=== PATIENT | male | born 1955 | race Caucasian/White ===

== ENCOUNTER 2024-04-30 23:44 | Inpatient (IN) | payer MEDICARE, MEDICAID, SELFPAY ==
[2024-04-30 23:46] VITALS: BP 164/117; PULSE 66; RESP 32; TEMP 36.3; O2SAT 91; BMI 24.5
[2024-04-30 23:50] VITALS: BP 166/117; PULSE 66; RESP 32; TEMP 36.3; O2SAT 91
--- NOTE | 2024-04-30 23:50 | EKG12_ITS ---
Test Reason : UNRESPONSIVE Blood Pressure : */* mmHG Vent. Rate : 99 BPM Atrial Rate : 69 BPM P-R Int : 146 ms QRS Dur : 84 ms QT Int : 410 ms P-R-T Axes : 29 -38 26 degrees QTcB Int : 526 ms Sinus rhythm with frequent Premature ventricular complexes Left axis deviation Minimal voltage criteria for LVH, may be normal variant ( R in aVL ) Anterolateral infarct , age undetermined Prolonged QT Abnormal ECG Confirmed by WILY MAURICIO, SALVATORE ([id number]), news editor SHILOH HUMPHRIES ([id number]) on 05/02/2024 7:10:30 AM Referred By: MADDIE Confirmed By: SALVATORE JULIEN MD
[2024-04-30 23:52] VITALS: O2SAT 94
[2024-04-30 23:55] VITALS: O2SAT 93
--- NOTE | 2024-04-30 23:59 | RAD_ITS ---
INDICATION: chest pain EXAMINATION/TECHNIQUE: X-RAY - XR Chest 1 View COMPARISON: No relevant prior comparison study available FINDINGS: LINES/DEVICES: There is tracheostomy tube in good position. LUNGS: No consolidation, edema or effusion. No pneumothorax. MEDIASTINUM AND CARDIOVASCULAR STRUCTURES: Cardiac silhouette not enlarged. Central airways and mediastinal contour are unremarkable. BONES AND SOFT TISSUES: Unremarkable. RAD/Chest 1 View (Portable) IMPRESSION: No radiographic evidence of acute cardiopulmonary disease. Electronically Signed: Zachariah Kitchen MD at 0:39 EST ,
[2024-05-01] VITALS (28 sets, daily range): BP systolic 104–169; BP diastolic 69–133; PULSE 73–160; RESP 18–36; TEMP 36.4–37.1; O2SAT 93–100; BMI 22.8
[2024-05-01 00:06] LABS: International Normalized Ratio 1.3; Prothrombin Time (Protime)PT. 15.7 SECONDS (11.7-14.9)
[2024-05-01 00:07] LABS: Absolute Lymphocyte Count 1.49 X10^3/uL (0.83-4.51); Absolute Neutrophil Count 15.6 X10^3/uL (2.0-7.7); Basophil# 0.11 X10^3/uL; Basophil% 0.6 % (0-1); Eosinophil# 0.08 X10^3/uL; Eosinophils% 0.4 % (0-5); Hemoglobin 10.2 g/dL (13.0-16.5); Lymphocyte # 1.49 X10^3/ul (0.83-4.51); Lymphocyte % 7.6 % (19-41); Mean Corp Hgb Conc 31.9 g/dL (32-36); Mean Corpuscular Hgb 27.3 pg (27.0-32.0); Mean Corpuscular Volume 85.8 fL (80-94); Mean Platelet Vol. 9.7 fl (6.2-12.0); Monocyte# 1.44 X10^3/uL; Monocyte% 7.3 % (0-10); NRBC Flagged by Analyzer 0.1 % (0-5); Neutrophil # 15.62 X10^3/uL (2.7-7.7); Neutrophil % 79.6 % (47-70); Partial Thromboplast Time 30.8 Seconds (24.1-36.2); Platelet Count 490 K/mm3 (150-450); RBC Distribution Width CV 16.2 % (11.6-14.6); RBC Distribution Width SD 50.4 fl (35.1-43.9); Red Blood Count 3.73 M/mm3 (4.6-6.2); White Blood Count 19.6 K/mm3 (4.4-11.0)
--- NOTE | 2024-05-01 00:10 | EKG12_ITS ---
Test Reason : REPEAT Blood Pressure : */* mmHG Vent. Rate : 108 BPM Atrial Rate : 108 BPM P-R Int : 144 ms QRS Dur : 84 ms QT Int : 376 ms P-R-T Axes : -23 -52 37 degrees QTcB Int : 503 ms Critical Test Result: STEMI Sinus tachycardia Left axis deviation Anterolateral infarct , possibly acute ACUTE [place] / STEMI Confirmed by WILY MAURICIO, SALVATORE ([id number]), advertising editor SHILOH HUMPHRIES ([id number]) on 05/02/2024 7:11:25 AM Referred By: Confirmed By: SALVATORE JULIEN MD
--- NOTE | 2024-05-01 00:17 | EDS_ITS ---
HPI History of Present Illness Chief Complaint: Unresponsive Informant: EMS Narrative Narrative: 68-year-old male does not typically come to this hospital but was brought to this hospital by EMS out of concern for a STEMI. Patient is a resident at [facility] in [place]. Apparently about an hour and a half prior to EMS arrival he became altered and his alert fullness and said oh God oh God. He was reported to be unresponsive for EMS he has been semiresponsive. They had concerns for STEMI on prehospital EKG. Patient has a history of myasthenia gravis. He has a tracheostomy and PEG tube. EMS states that they had short nonsustained runs of V-fib and route to the hospital but did not require treatment. [facility] Medical History (Updated 05/01/24 @ 01:[address] Buck Burnette, ) Gastrostomy in place Tracheostomy in place TIA (transient ischemic attack) Hypertension Myasthenia gravis with exacerbation Chronic respiratory failure Congestive cardiac failure Atrial flutter Bradycardia Iron deficiency anemia Chronic pain Diabetes 1.5, managed as type 2 Dysphagia GERD (gastroesophageal reflux disease) Hyperlipemia Afib Dyskinesia of esophagus Depression Anxiety Home Medications ?Medication ?Instructions ?Recorded ?Last Taken ?Type apixaban 5 mg tablet 5 mg feeding tube BID 04/30/24 Unknown History atorvastatin 40 mg tablet 40 mg feeding tube QHS 04/30/24 Unknown History azathioprine 50 mg tablet 50 mg feeding tube BID 04/30/24 Unknown History lactose-reduced food-fiber 0.07 250 ml feeding tube Q4H 04/30/24 Unknown History gram-1.5 kcal/mL liquid for tube feed (Isosource 1.5 Trever) dextromethorphan-guaifenesin 10 10 ml feeding tube Q6H 05/01/24 Unknown History mg-100 mg/5 mL oral syrup diclofenac sodium 1 % topical gel topical BID 05/01/24 Unknown History (Arthritis Pain (diclofenac)) docusate sodium 100 mg tablet 100 mg PO BID 05/01/24 Unknown History (Docuprene) duloxetine 60 mg capsule,delayed 60 mg feeding tube QHS 05/01/24 Unknown History release sprinkle (Drizalma Sprinkle) escitalopram oxalate 5 mg tablet 15 mg feeding tube DAILY 05/01/24 Unknown History ferrous sulfate 300 mg (60 mg 300 mg feeding tube BID 05/01/24 Unknown History iron)/5 mL oral liquid fluticasone propionate 50 2 spray intranasal BID 05/01/24 Unknown History mcg/actuation nasal spray,suspension (24 Hour Allergy Relief) furosemide 20 mg tablet 20 mg feeding tube DAILY 05/01/24 Unknown History insulin glargine 100 unit/mL (3 15 unit subcut BID 05/01/24 Unknown History mL) subcutaneous pen (Lantus Solostar U-100 Insulin) insulin lispro 100 unit/mL See Protocol subcut Q6H 05/01/24 Unknown History subcutaneous pen (Humalog KwikPen (U-100) Insulin) memantine 5 mg tablet 5 mg feeding tube BID 05/01/24 Unknown History pramipexole 0.25 mg tablet 0.25 mg feeding tube DAILY 05/01/24 Unknown History pramipexole 0.5 mg tablet 0.5 mg feeding tube QHS 05/01/24 Unknown History prednisone 20 mg tablet 20 mg feeding tube DAILY 05/01/24 Unknown History pregabalin 100 mg capsule (Lyrica) 100 mg feeding tube TID 05/01/24 Unknown History pyridostigmine bromide 60 mg tablet 60 mg feeding tube QHS 05/01/24 Unknown History pyridostigmine bromide 60 mg tablet 120 mg feeding tube ACHS 05/01/24 Unknown History sennosides 8.6 mg-docusate sodium 2 tab-cap PO DAILY 05/01/24 Unknown History 50 mg tablet (Stool Softener-Laxative) sotalol 80 mg tablet (Betapace) 40 mg feeding tube BID 05/01/24 Unknown History sulfamethoxazole 800 1 tab feeding tube MOWEFR 05/01/24 Unknown History mg-trimethoprim 160 mg tablet (Bactrim DS) Allergy/AdvReac Type Severity Reaction Status Date / Time amlodipine Allergy Unknown PT UNABLE Verified 04/30/24 23:56 TO RESPOND-NEEDS F/U amoxicillin Allergy Unknown PT UNABLE Verified 04/30/24 23:56 TO RESPOND-NEEDS F/U atorvastatin Allergy Unknown PT UNABLE Verified 04/30/24 23:56 TO RESPOND-NEEDS F/U cyclobenzaprine Allergy Unknown PT UNABLE Verified 04/30/24 23:56 TO RESPOND-NEEDS F/U diclofenac Allergy Unknown PT UNABLE Verified 04/30/24 23:56 TO RESPOND-NEEDS F/U diltiazem Allergy Unknown PT UNABLE Verified 04/30/24 23:56 TO RESPOND-NEEDS F/U esomeprazole Allergy Unknown PT UNABLE Verified 04/30/24 23:56 TO RESPOND-NEEDS F/U famotidine Allergy Unknown PT UNABLE Verified 04/30/24 23:56 TO RESPOND-NEEDS F/U gabapentin Allergy Unknown PT UNABLE Verified 04/30/24 23:56 TO RESPOND-NEEDS F/U haloperidol Allergy Unknown PT UNABLE Verified 04/30/24 23:56 TO RESPOND-NEEDS F/U immune globulin,alpha (IgA) Allergy Unknown PT UNABLE Verified 04/30/24 23:56 average 46 mcg/mL TO RESPOND-NEEDS F/U ketamine Allergy Unknown PT UNABLE Verified 04/30/24 23:56 TO RESPOND-NEEDS F/U ketorolac Allergy Unknown PT UNABLE Verified 04/30/24 23:56 TO RESPOND-NEEDS F/U lansoprazole Allergy Unknown PT UNABLE Verified 04/30/24 23:56 TO RESPOND-NEEDS F/U morphine Allergy Unknown PT UNABLE Verified 04/30/24 23:56 TO RESPOND-NEEDS F/U nifedipine Allergy Unknown PT UNABLE Verified 04/30/24 23:56 TO RESPOND-NEEDS F/U pantoprazole Allergy Unknown PT UNABLE Verified 04/30/24 23:56 TO RESPOND-NEEDS F/U prochlorperazine Allergy Unknown PT UNABLE Verified 04/30/24 23:56 TO RESPOND-NEEDS F/U promethazine Allergy Unknown PT UNABLE Verified 04/30/24 23:56 TO RESPOND-NEEDS F/U zolpidem Allergy Unknown PT UNABLE Verified 04/30/24 23:56 TO RESPOND-NEEDS F/U Family History unable to obtain Surgical History unable to obtain Social History Smoking Status: Unknown if ever smoked ROS ROS ED Review of Systems ROS Unobtainable: due to mental status EXAM Physical Exam Const Vital Signs: 04/30/24 23:46 04/30/24 23:50 04/30/24 23:52 Temperature 97.3 F L 97.3 F L Temperature Source Temporal Temporal Pulse Rate 66 66 Respiratory Rate 32 H 32 H Respiratory Effort Respiratory Pattern Blood Pressure 164/117 H 166/117 H Blood Pressure Mean 132 133 Pulse Ox 91 91 94 Oxygen Delivery Method Non-Rebreather Non-Rebreather Non-Rebreather Oxygen Flow Rate (L/min) 15 15 04/30/24 23:55 04/30/24 23:56 05/01/24 00:02 Temperature Temperature Source Pulse Rate 73 Respiratory Rate 20 H Respiratory Effort Normal Non-Labored Respiratory Pattern Normal Blood Pressure 169/102 H Blood Pressure Mean 124 Pulse Ox 93 93 Oxygen Delivery Method Room Air Room Air Oxygen Flow Rate (L/min) 05/01/24 01:07 05/01/24 01:28 05/01/24 01:50 Temperature 97.8 F 97.8 F Temperature Source Temporal Temporal Pulse Rate 73 80 88 Respiratory Rate 24 H 18 22 H Respiratory Effort Respiratory Pattern Blood Pressure 152/102 H 153/113 H 166/122 H Blood Pressure Mean 118 126 136 Pulse Ox 93 93 96 Oxygen Delivery Method Room Air Room Air Room Air Oxygen Flow Rate (L/min) 05/01/24 02:07 Temperature Temperature Source Pulse Rate 114 H Respiratory Rate 22 H Respiratory Effort Respiratory Pattern Blood Pressure 159/99 H Blood Pressure Mean 119 Pulse Ox 94 Oxygen Delivery Method Room Air Oxygen Flow Rate (L/min) Positive well nourished and well developed General Appearance ED: well developed, NAD and pallor HEENT Reports normocephalic, head/scalp atraumatic and moist mucous membranes HEENT Narrative: Tracheostomy present Eyes PERRL and EOMs intact bilaterally Neck no lymphadenopathy, supple and no JVD Resp normal respiratory effort and clear to auscultation bilaterally Cardio regular rate, regular rhythm and no murmurs GI normal to inspection, nondistended, normoactive bowel sounds and non-tender Palpation: soft Back/Spine no CVA tenderness and normal ROM Extremity normal to inspection General Extremety ED: Negative for edema General Extremity: Negative for edema Neuro Neuro Narrative: Generally weak appearing Sensorium / Orientation: alert Psych Psych Narrative: Unable to assess Skin no rashes or lesions noted and no wounds General Skin Exam: pallor MDM MDM MDM Narrative Medical decision making narrative: I sent the prehospital EKG to our STEMI physician Dr. Black. We did not call a prehospital STEMI as we did not have an EMS report. Initial EKG performed here at 2348 hrs. is concerning across the anterior lateral leads. I sent this for review as well. I was able to repeat it approximately 15 minutes later with a much better baseline. Labs returned with a white count of 19.6 hemoglobin of 10.2 INR 1.3 PTT 30.8. BUN of 40 creatinine 1.08 glucose of 187. Troponin is significantly elevated at 2354. Urinalysis 10-25 white cells 2+ bacteria. This will be sent for culture and blood cultures will be obtained. Lactic acid was also sent. I repeated his EKG at 0044 hrs. I also sent this to our STEMI physician for review and we spoke directly. His ABG shows a pH of 7.50 HCO3 29.4. We called [facility] where is reported he was just hospitalized after but apparently he was not just hospitalized there. We are able to obtain a cardiology consult from the of this month by Dr. Huffman. His description of the EKG is sinus with early transition. I was able to obtain a EKG from 2021 but does not show today's changes. It was noted that in February 2022 he had a heart catheterization that showed nonobstructive coronary artery disease with the worst lesion at 30% at the left main. Echocardiogram in February 23, 2024 showed an LVEF of 62% no valvular disease and mild LVH. My independent interpretation of the chest x-ray is no acute process. Patient will be given a dose of Rocephin. Cardiology is recommending a heparin drip at this time. We are going to try to obtain the EKG from [facility] which is where I believe the patient was most likely admitted recently. Plan will be admission. As far as the patient I cannot get him to really tell me anything. He will intermittently say help me but does not appear in any distress. He remains hypertensive and going to go ahead and give him some hydralazine. Blood pressure did improve. Patient was discussed with the hospitalist and we are preparing to move him up to the floor when he went into A-fib with RVR. It is unclear if the patient has had his sotalol tonight and the prison was not able to provide us this information at the time that we called. I ordered metoprolol. Again he has a history of A-fib. Patient also received a dose of Dilaudid for presumed pain even though he could not tell us he seemed uncomfortable tapping his foot and trying to move around in the bed. EKGs perfomed at 2348/0005/24914/0231 hours History & Record Review Discussion w/independent historian: EMS personnel Additional record(s) reviewed:: Prior outpatient record Lab Data Attestation: I reviewed the patient's lab results. Labs: Laboratory Results - last 24 hr 04/30/24 05/01/24 05/01/24 23:48 00:50 01:07 WBC 19.6 H RBC 3.73 L Hgb 10.2 L Hct 32.0 L MCV 85.8 MCH 27.3 MCHC 31.9 L RDW Std Deviation 50.4 H RDW Coeff of Mauro 16.2 H Plt Count 490 H MPV 9.7 Immature Gran % (Auto) 4.500 H Neut % (Auto) 79.6 H Lymph % (Auto) 7.6 L Long % (Auto) 7.3 Eos % (Auto) 0.4 Baso % (Auto) 0.6 Absolute Neuts (auto) 15.6 H Absolute Lymphs (auto) 1.49 Nucleated RBC % 0.1 PT 15.7 H INR 1.3 APTT 30.8 Sodium 138 Potassium 3.7 Chloride 99 Carbon Dioxide 31.0 Anion Gap 7 BUN 40 H Creatinine 1.08 Estim Creat Clear Calc 71.85 Est GFR (MDRD) Af Amer 87 Est GFR (MDRD) Non-Af 72 BUN/Creatinine Ratio 37.0 H Glucose 187 H Lactic Acid 2.5 H* Calcium 9.6 Total Bilirubin 0.40 Direct Bilirubin 0.13 AST 41 H ALT 68 H Alkaline Phosphatase 234 H Troponin I High Sens 2354 H* Total Protein 7.2 Albumin 2.9 L Globulin 4.3 H Lipase 94 H Urine Color Yellow Urine Clarity Clear Urine pH 8.0 Ur Specific [place] 1.015 Urine Protein 30 H Urine Glucose (UA) Normal Urine Ketones Negative Urine Occult Blood 25 H Urine Nitrite Negative Urine Bilirubin Negative Urine Urobilinogen Normal Ur Leukocyte Esterase 500 H Urine RBC 0 SEEN Urine WBC 10-25 SEEN Ur Squamous Epith Cells 0 SEEN Urine Bacteria 2+ Urine Mucus 0 SEEN ABG Data ABG results: ABG 05/01/24 00:22 Specimen Type ART Sample Site L Radial pH 7.51 H Bicarbonate Actual 29.4 H Total CO2 31 Base Excess 6 H O2 Saturation 96 O2 % 30.0 ABG pCO2 37.0 ABG pO2 76 [place] Test Positive O2 Delivery Device T Collar Vent Mode Not entered Radiography Diagnostic Testing: Clinical Impression(s) from Imaging Studies Chest X-Ray 04/30/24 23:59 IMPRESSION: No radiographic evidence of acute cardiopulmonary disease. Electronically Signed: Zachariah Kitchen MD at 0:39 EST , EKG Initial EKG: Attestation: I personally reviewed and interpreted this EKG as follows: Comments: Sinus tachycardia ventricular rate of 109 bpm. Very pronounced T waves hyperacute appearing particularly V2 through V6 (2348 hours) Follow-up EKG: Attestation: I personally reviewed and interpreted this EKG as follows: Comments: Sinus tachycardia ventricular rate of 109 bpm. Very pronounced T waves hyperacute appearing particularly V2 through V6 (0006 hours) Management Discussion w/another healthcare provider: Hospitalist (Dr Agosto) and Toolroom Checker (Dr Black) Critical Care Time Critical Care Time: Yes Critical care time (excluding procedures): 30-74 minutes (35 min), Including time spent:, Discussing w/Patient &/or Family/Radial Saw Operator, Discussing w/Consultants, Arranging Admission or Transfer and Performing Direct Patient Care at Bedside Discharge Plan Dx/Rx/DC Orders Clinical Impression: ACS (acute coronary syndrome), Elevated troponin, Acute UTI, Hypertension Disposition Disposition: Acute Care [facility]
[2024-05-01 00:24] LABS: AST(SGOT) 41 U/L (15-37); Alanine Aminotransfer ALT/SGPT 68 U/L (16-61); Albumin, Serum 2.9 g/dL (3.2-5.0); Alkaline Phosphatase 234 U/L (45-117); Anion Gap 7 (5-15); BUN 40 mg/dL (7-18); Bilirubin, Direct 0.13 mg/dL (0.00-0.30); Calcium,Total 9.6 mg/dL (8.5-10.1); Chloride 99 mmol/L (98-107); Creatinine, Serum 1.08 mg/dL (0.70-1.30); EST Glomerular Filtration Rate 72 mL/min (>60); Est Glom Filt Rate - Afr Amer 87 mL/min (>60); Estimated Creatinine Clearance 71.85 ml/min; Globulin 4.3 g/dL (2.2-4.2); Glucose 187 mg/dL (74-106); Lipase 94 U/L (13-75); Potassium 3.7 mmol/L (3.5-5.1); Protein, Total 7.2 g/dL (6.4-8.2); Sodium Level 138 mmol/L (136-145); Troponin-I HS 2354 pg/mL (3.0-78.0)
[2024-05-01 00:27] LABS: Allen Test Positive; Base Excess 6 mmol/L (-2 to +2); Bicarbonate 29.4 mmol/L (22-26); Blood Gas Specimen Type ART; Mode Not entered; O2 Delivery Device T Collar; PO2 76 mmHG (75-100); SITE L Radial; SO2 96 % (95-99); Total Carbon Dioxide 31 mmol/L; pH 7.51 (7.35-7.45)
[2024-05-01 01:12] LABS: Mucous, Urine 0 SEEN /hpf (<or=2+); Red Blood Cells-Urine 0 SEEN /hpf (0-5); Squamous Epithelial Cells - UA 0 SEEN /hpf (0-5)
[2024-05-01 01:13] LABS: Color, Urine Yellow (Yellow); Glucose, Dipstick Normal (Normal); Ketone-Dipstick Negative (Negative); Leukocyte Esterase-Dipstick 500 /ul (Negative); Nitrite-Dipstick Negative (Negative); Occult Blood-Urine 25 /ul (Negative); Protein-Dipstick 30 mg/dl (Negative); Specific Gravity, Urine 1.015 (1.002-1.030); Urine Bilirubin Dipstick Negative (Negative); Urine Clarity Clear (Clear); Urine Urobilinogen Normal (Normal)
[2024-05-01 01:22] LABS: Bacteria 2+ /hpf (None Seen); White Blood Cells 10-25 SEEN /hpf (0-5)
[2024-05-01] MEDS: HEPARIN/D5w 25,000 UNITS 25,000 UNITS/250 ML IV.SOLN. 12 UNITS CONT INF (01:46)
[2024-05-01 01:48] LABS: Lactic Acid 2.5 mmol/L (0.4-1.9)
[2024-05-01] MEDS: hydrALAZINE 20 MG/ML Vial IV (01:50)
[2024-05-01] MEDS: Ceftriaxone 1 GM/50 ML BAG IV ×2 (02:03→21:50)
[2024-05-01] MEDS: 0.9% Normal Saline (1000mL) 1,000 ML 999 ML IV (02:04)
--- NOTE | 2024-05-01 02:18 | PCM.HP.STD ---
HPI - General General Date of Admission: 05/01/24 HPI Narrative TIA RAM, is a 68 M who [facility] because of [facility] pain. He had an extensive admission at outside hospital and then was in a long-term care facility in [place]. He has a history of myasthenia gravis and is currently trached and pegged. He presents the hospital with chest pain and initially there was concerns for STEMI since he had an elevated troponin to 2300. The EKGs were shared with cardiology who did not feel that he was having a STEMI and recommended a heparin drip. Unfortunately he presented somewhat unresponsive and does not communicate directly so history was obtained from chart review and the ED physician. [facility] Medical History (Updated 05/01/24 @ 03:[address] Buck Burnette, ) Gastrostomy in place Tracheostomy in place TIA (transient ischemic attack) Hypertension Myasthenia gravis with exacerbation Chronic respiratory failure Congestive cardiac failure Atrial flutter Bradycardia Iron deficiency anemia Chronic pain Diabetes 1.5, managed as type 2 Dysphagia GERD (gastroesophageal reflux disease) Hyperlipemia Afib Dyskinesia of esophagus Depression Anxiety Home Medications ?Medication ?Instructions ?Recorded ?Last Taken ?Type apixaban 5 mg tablet 5 mg feeding tube BID 04/30/24 Unknown History atorvastatin 40 mg tablet 40 mg feeding tube QHS 04/30/24 Unknown History azathioprine 50 mg tablet 50 mg feeding tube BID 04/30/24 Unknown History lactose-reduced food-fiber 0.07 250 ml feeding tube Q4H 04/30/24 Unknown History gram-1.5 kcal/mL liquid for tube feed (Isosource 1.5 Trever) dextromethorphan-guaifenesin 10 10 ml feeding tube Q6H 05/01/24 Unknown History mg-100 mg/5 mL oral syrup diclofenac sodium 1 % topical gel topical BID 05/01/24 Unknown History (Arthritis Pain (diclofenac)) docusate sodium 100 mg tablet 100 mg PO BID 05/01/24 Unknown History (Docuprene) duloxetine 60 mg capsule,delayed 60 mg feeding tube QHS 05/01/24 Unknown History release sprinkle (Drizalma Sprinkle) escitalopram oxalate 5 mg tablet 15 mg feeding tube DAILY 05/01/24 Unknown History ferrous sulfate 300 mg (60 mg 300 mg feeding tube BID 05/01/24 Unknown History iron)/5 mL oral liquid fluticasone propionate 50 2 spray intranasal BID 05/01/24 Unknown History mcg/actuation nasal spray,suspension (24 Hour Allergy Relief) furosemide 20 mg tablet 20 mg feeding tube DAILY 05/01/24 Unknown History insulin glargine 100 unit/mL (3 15 unit subcut BID 05/01/24 Unknown History mL) subcutaneous pen (Lantus Solostar U-100 Insulin) insulin lispro 100 unit/mL See Protocol subcut Q6H 05/01/24 Unknown History subcutaneous pen (Humalog KwikPen (U-100) Insulin) memantine 5 mg tablet 5 mg feeding tube BID 05/01/24 Unknown History pramipexole 0.25 mg tablet 0.25 mg feeding tube DAILY 05/01/24 Unknown History pramipexole 0.5 mg tablet 0.5 mg feeding tube QHS 05/01/24 Unknown History prednisone 20 mg tablet 20 mg feeding tube DAILY 05/01/24 Unknown History pregabalin 100 mg capsule (Lyrica) 100 mg feeding tube TID 05/01/24 Unknown History pyridostigmine bromide 60 mg tablet 60 mg feeding tube QHS 05/01/24 Unknown History pyridostigmine bromide 60 mg tablet 120 mg feeding tube ACHS 05/01/24 Unknown History sennosides 8.6 mg-docusate sodium 2 tab-cap PO DAILY 05/01/24 Unknown History 50 mg tablet (Stool Softener-Laxative) sotalol 80 mg tablet (Betapace) 40 mg feeding tube BID 05/01/24 Unknown History sulfamethoxazole 800 1 tab feeding tube MOWEFR 05/01/24 Unknown History mg-trimethoprim 160 mg tablet (Bactrim DS) Allergy/AdvReac Type Severity Reaction Status Date / Time amlodipine Allergy Unknown PT UNABLE Verified 04/30/24 23:56 TO RESPOND-NEEDS F/U amoxicillin Allergy Unknown PT UNABLE Verified 04/30/24 23:56 TO RESPOND-NEEDS F/U atorvastatin Allergy Unknown PT UNABLE Verified 04/30/24 23:56 TO RESPOND-NEEDS F/U cyclobenzaprine Allergy Unknown PT UNABLE Verified 04/30/24 23:56 TO RESPOND-NEEDS F/U diclofenac Allergy Unknown PT UNABLE Verified 04/30/24 23:56 TO RESPOND-NEEDS F/U diltiazem Allergy Unknown PT UNABLE Verified 04/30/24 23:56 TO RESPOND-NEEDS F/U esomeprazole Allergy Unknown PT UNABLE Verified 04/30/24 23:56 TO RESPOND-NEEDS F/U famotidine Allergy Unknown PT UNABLE Verified 04/30/24 23:56 TO RESPOND-NEEDS F/U gabapentin Allergy Unknown PT UNABLE Verified 04/30/24 23:56 TO RESPOND-NEEDS F/U haloperidol Allergy Unknown PT UNABLE Verified 04/30/24 23:56 TO RESPOND-NEEDS F/U immune globulin,alpha (IgA) Allergy Unknown PT UNABLE Verified 04/30/24 23:56 average 46 mcg/mL TO RESPOND-NEEDS F/U ketamine Allergy Unknown PT UNABLE Verified 04/30/24 23:56 TO RESPOND-NEEDS F/U ketorolac Allergy Unknown PT UNABLE Verified 04/30/24 23:56 TO RESPOND-NEEDS F/U lansoprazole Allergy Unknown PT UNABLE Verified 04/30/24 23:56 TO RESPOND-NEEDS F/U morphine Allergy Unknown PT UNABLE Verified 04/30/24 23:56 TO RESPOND-NEEDS F/U nifedipine Allergy Unknown PT UNABLE Verified 04/30/24 23:56 TO RESPOND-NEEDS F/U pantoprazole Allergy Unknown PT UNABLE Verified 04/30/24 23:56 TO RESPOND-NEEDS F/U prochlorperazine Allergy Unknown PT UNABLE Verified 04/30/24 23:56 TO RESPOND-NEEDS F/U promethazine Allergy Unknown PT UNABLE Verified 04/30/24 23:56 TO RESPOND-NEEDS F/U zolpidem Allergy Unknown PT UNABLE Verified 04/30/24 23:56 TO RESPOND-NEEDS F/U Family History unable to obtain unable to obtain Surgical History unable to obtain unable to obtain Social History Smoking Status: Unknown if ever smoked ROS Review of Systems ROS Unobtainable: due to mental status Vital Signs Vital Signs Vital Signs: 04/30/24 23:46 04/30/24 23:50 04/30/24 23:52 Temperature 97.3 F L 97.3 F L Temperature Source Temporal Temporal Pulse Rate 66 66 Respiratory Rate 32 H 32 H Respiratory Effort Respiratory Pattern Blood Pressure 164/117 H 166/117 H Blood Pressure Mean 132 133 Pulse Ox 91 91 94 Oxygen Delivery Method Non-Rebreather Non-Rebreather Non-Rebreather Oxygen Flow Rate (L/min) 15 15 04/30/24 23:55 04/30/24 23:56 05/01/24 00:02 Temperature Temperature Source Pulse Rate 73 Respiratory Rate 20 H Respiratory Effort Normal Non-Labored Respiratory Pattern Normal Blood Pressure 169/102 H Blood Pressure Mean 124 Pulse Ox 93 93 Oxygen Delivery Method Room Air Room Air Oxygen Flow Rate (L/min) 05/01/24 01:07 05/01/24 01:28 05/01/24 01:50 Temperature 97.8 F 97.8 F Temperature Source Temporal Temporal Pulse Rate 73 80 88 Respiratory Rate 24 H 18 22 H Respiratory Effort Respiratory Pattern Blood Pressure 152/102 H 153/113 H 166/122 H Blood Pressure Mean 118 126 136 Pulse Ox 93 93 96 Oxygen Delivery Method Room Air Room Air Room Air Oxygen Flow Rate (L/min) 05/01/24 02:07 Temperature Temperature Source Pulse Rate 114 H Respiratory Rate 22 H Respiratory Effort Respiratory Pattern Blood Pressure 159/99 H Blood Pressure Mean 119 Pulse Ox 94 Oxygen Delivery Method Room Air Oxygen Flow Rate (L/min) Weight Weight: 180 lb 12.465 oz Body Mass Index (BMI) 24.5 Physical Exam Narrative General: drowsy and minimally responsive, he will open his eyes, no apparent distress HEENT: Atraumatic, PERRLA, EOMI, Normocephalic Oral: Moist Mucosa Neck: Supple, No JVD, trach Lungs: Diminished, Normal air movement, No rhonchi, No wheeze, No rales Cardiovascular: Irregular rate and rhythm, Normal S1, Normal S2, No murmurs Abdomen: Soft, Non Tender, Non-Distended, No Hepato-splenomegaly, PEG tube Extremities: No edema, Capillary Refill Less than 3 Seconds Skin: No rashes, No breakdown Musculoskeletal: No Tenderness to Palpation of Joints or Extremities Neurological: Does not cooperate with exam Psych/Mental Status: Does not cooperate with exam Results Lab / Micro Data 05/01/24 05:33 05/01/24 05:33 Labs: Laboratory Results - last 24 hr 04/30/24 23:48: WBC 19.6 H, RBC 3.73 L, Hgb 10.2 L, Hct 32.0 L, MCV 85.8, MCH 27.3, MCHC 31.9 L, RDW Std Deviation 50.4 H, RDW Coeff of Mauro 16.2 H, Plt Count 490 H, MPV 9.7, Immature Gran % (Auto) 4.500 H, Neut % (Auto) 79.6 H, Lymph % (Auto) 7.6 L, [place] % (Auto) 7.3, Eos % (Auto) 0.4, Baso % (Auto) 0.6, Absolute Neuts (auto) 15.6 H, Absolute Lymphs (auto) 1.49, Nucleated RBC % 0.1, PT 15.7 H, INR 1.3, APTT 30.8, Sodium 138, Potassium 3.7, Chloride 99, Carbon Dioxide 31.0, Anion Gap 7, BUN 40 H, Creatinine 1.08, Estim Creat Clear Calc 71.85, Est GFR (MDRD) Af Amer 87, Est GFR (MDRD) Non-Af 72, BUN/Creatinine Ratio 37.0 H, Glucose 187 H, Calcium 9.6, Total Bilirubin 0.40, Direct Bilirubin 0.13, AST 41 H, ALT 68 H, Alkaline Phosphatase 234 H, Troponin I High Sens 2354 H*, Total Protein 7.2, Albumin 2.9 L, Globulin 4.3 H, Lipase 94 H 05/01/24 00:50: Lactic Acid 2.5 H* 05/01/24 01:07: Urine Color Yellow, Urine Clarity Clear, Urine pH 8.0, Ur Specific [place] 1.015, Urine Protein 30 H, Urine Glucose (UA) Normal, Urine Ketones Negative, Urine Occult Blood 25 H, Urine Nitrite Negative, Urine Bilirubin Negative, Urine Urobilinogen Normal, Ur Leukocyte Esterase 500 H, Urine RBC 0 SEEN, Urine WBC 10-25 SEEN, Ur Squamous Epith Cells 0 SEEN, Urine Bacteria 2+, Urine Mucus 0 SEEN ABG Data ABG results: ABG 05/01/24 00:22 Specimen Type ART Sample Site L Radial pH 7.51 H Bicarbonate Actual 29.4 H Total CO2 31 Base Excess 6 H O2 Saturation 96 O2 % 30.0 ABG pCO2 37.0 ABG pO2 76 [place] Test Positive O2 Delivery Device T Collar Vent Mode Not entered Imaging Radiology Impression Chest X-Ray 04/30/24 23:59 IMPRESSION: No radiographic evidence of acute cardiopulmonary disease. Electronically Signed: Zachariah Kitchen MD at 0:39 EST , Assessment & Plan Assessment/Plan (1) Atrial fibrillation with RVR: (2) Hypertension: (3) Acute UTI: (4) Elevated troponin: (5) ACS (acute coronary syndrome): PLAN: Plan 1. Non-STEMI with paroxysmal A-fib with RVR/HLD/UTI ? Continue the heparin drip ? Will consult cardiology ? Will obtain an echocardiogram, he had an echo at the outside hospital I believe with an EF of 62% ? Will continue with his home sotalol, continue with Cardizem to control heart rate wean as able ? Leukocytosis to 19 with a positive UA. He was given a dose of Rocephin which we will continue and obtain a urine culture 2. Myasthenia gravis ? He is status post trach and PEG ? Continue to give medications through his PEG tube ? Will consult nutrition for tube feeds ? Continue with his home medications 3. DM2 ? Continue with his insulin ? Will monitor make adjustments as necessary ? Accu-Cheks ACHS 4. Iron deficiency anemia ? Stable ? Continue with iron supplementation 5. Anxiety/depression/dementia ? Stable ? Continue with his home medications DVT: Heparin drip 75 minutes was spent on direct patient care, including documentation as well as chart review and collaboration with colleagues Charges/Coding Visit Charges Inpatient E&M: 68429 Init Hosp L3
--- NOTE | 2024-05-01 02:32 | EKG12_ITS ---
Test Reason : REPEAT Blood Pressure : */* mmHG Vent. Rate : 87 BPM Atrial Rate : 87 BPM P-R Int : 146 ms QRS Dur : 88 ms QT Int : 402 ms P-R-T Axes : 46 -43 44 degrees QTcB Int : 483 ms Critical Test Result: STEMI Sinus rhythm with Premature supraventricular complexes and with occasional Premature ventricular comp lexes Left axis deviation Anterolateral infarct , possibly acute ACUTE MN / STEMI Abnormal ECG Confirmed by WILY MAURICIO, SALVATORE ([id number]), dictionary editor SHILOH HUMPHRIES ([id number]) on 05/02/2024 7:10:48 AM Referred By: Confirmed By: SALVATORE JULIEN MD
[2024-05-01] MEDS: HYDROmorphone 0.5 MG/0.5 ML SYRINGE IV (02:47)
[2024-05-01 03:12] LABS: Troponin-I HS 5128 pg/mL (3.0-78.0)
[2024-05-01] MEDS: Metoprolol Tartrate 5 MG/5 ML Vial IV ×3 (03:16→03:31)
--- NOTE | 2024-05-01 03:57 | ECHOCS_ITS ---
Reason For Study: Chest Pain Procedure This was a 2D Doppler, Color Flow transthoracic echocardiogram. The study was technically difficult. Contrast injection was performed. Exam performed portable in patient room. Left Ventricle Normal LV size. The left ventricular ejection fraction is 25 %. Moderately severe segmental systolic dysfunction (see wall motion). [place] : Akinetic. Mid-Anterior : Severely Hypokinetic. Anterior [place] : Akinetic. Mid-anteroseptal : Severely Hypokinetic. Basal anteroseptal: Mildly hypokinetic. Right Ventricle Normal RV size. Normal systolic function. Atria Normal left atrium. Normal right atrium. Mitral Valve Normal mitral valve. Tricuspid Valve Normal tricuspid valve. Aortic Valve The aortic valve is not well visualized. Pulmonic Valve The pulmonic valve is not well visualized. Great Vessels Normal aortic root. The pulmonary artery is normal size. Inferior vena cava collapse with respiration. Pericardium/Pleural No pericardial effusion. Medication Diluted definity 7ml given slow IV push to enhance endocardial definition. MMode/2D Measurements & Calculations LVIDd: 3.0 cm IVSd: 1.1 cm Ao root diam: 3.6 cm LVIDs: 2.8 cm LVPWd: 1.1 cm RVDd: 2.8 cm FS: 8.0 % LAV(MOD-sp2): 55.7 ml LA dimension(2D): 4.3 cm Doppler Measurements & Calculations MV E max yajaira: 32.3 cm/sec MV V2 max: 108.9 cm/sec Ao V2 max: 145.0 cm/sec MV max P.8 mmHg Ao max P.5 mmHg MV V2 mean: 45.0 cm/sec MV mean P.1 mmHg MV V2 VTI: 13.6 cm LV V1 max: 144.0 cm/sec MR max yajaira: 567.3 cm/sec LV V1 max P.3 mmHg MR max P.7 mmHg ECHO/Echo Complete W/ Contrast Interpretation Summary The left ventricular ejection fraction is 25 %. Moderately severe segmental systolic dysfunction (see wall motion). Normal LV size. Contrast injection was performed. Ordering Physician: Ace Agosto Performed By: Thang Lerner RCS
[2024-05-01 04:57] LABS: Reflex Lactate? Y
[2024-05-01] MEDS: Diltiazem 125 MG in Dextrose 5%-Water (100mL Bag) 100 ML IV (05:07)
[2024-05-01 05:41] LABS: Absolute Lymphocyte Count 1.59 X10^3/uL (0.83-4.51); Basophil# 0.08 X10^3/uL; Basophil% 0.4 % (0-1); Eosinophil# 0.02 X10^3/uL; Eosinophils% 0.1 % (0-5); Hemoglobin 9.7 g/dL (13.0-16.5); Lymphocyte # 1.59 X10^3/ul (0.83-4.51); Lymphocyte % 7.8 % (19-41); Mean Corp Hgb Conc 32.3 g/dL (32-36); Mean Corpuscular Hgb 27.4 pg (27.0-32.0); Mean Corpuscular Volume 84.7 fL (80-94); Mean Platelet Vol. 9.6 fl (6.2-12.0); Monocyte% 6.4 % (0-10); NRBC Flagged by Analyzer 0 % (0-5); Neutrophil # 16.98 X10^3/uL (2.7-7.7); Neutrophil % 83.7 % (47-70); Platelet Count 459 K/mm3 (150-450); RBC Distribution Width SD 49.1 fl (35.1-43.9); Red Blood Count 3.54 M/mm3 (4.6-6.2); White Blood Count 20.3 K/mm3 (4.4-11.0)
[2024-05-01 06:05] LABS: Lactic Acid 1.9 mmol/L (0.4-1.9)
[2024-05-01 06:13] LABS: Anion Gap 5 (5-15); BUN 34 mg/dL (7-18); BUN/Creat Ratio 38.5 RATIO (10-20); Calcium,Total 9.7 mg/dL (8.5-10.1); Chloride 104 mmol/L (98-107); Creatinine, Serum 0.88 mg/dL (0.70-1.30); EST Glomerular Filtration Rate 91 mL/min (>60); Est Glom Filt Rate - Afr Amer 110 mL/min (>60); Estimated Creatinine Clearance 87.05 ml/min; Glucose 177 mg/dL (74-106); Potassium 3.2 mmol/L (3.5-5.1); Sodium Level 138 mmol/L (136-145); Troponin-I HS 6230 pg/mL (3.0-78.0)
[2024-05-01 06:51] LABS: Bedside Glucose 186 mg/dL (74-106)
[2024-05-01] MEDS: predniSONE 20 MG Tablet GT (08:15)
[2024-05-01] MEDS: Ferrous Sulfate 300 MG/5 ML UDC GT ×2 (08:15→17:49)
[2024-05-01 08:38] LABS: Partial Thromboplast Time 63.3 Seconds (24.1-36.2)
--- NOTE | 2024-05-01 09:15 | NURSING ---
This RN spoke with Pippa, tnt line supervisor at [facility] in [place]. Pippa confirms that Mr. Thornton was a pt there for months before being transferred to [facility]. Basic health history questions were answered and the name of pt's MITRA, Mike Loja, as well as a phone number to reach him. Tammy WREN
--- NOTE | 2024-05-01 09:47 | PCM.CONS.C ---
Assessment & Plan Assessment/Plan (1) STEMI (ST elevation myocardial infarction): PLAN: Patient presented with EKG changes suggestive of the same. However it was determined that medical therapy should be pursued. He appears to be doing fairly well at this time I would recommend that we obtain An echocardiogram to assess his ventricular function Supportive care with beta-yue and MONA inhibitors and high intensity statin Will also need to discuss with the power of assistant attorney general. He does not appear to be complaining of any chest pain at this time (2) Atrial fibrillation with RVR: PLAN: He apparently has a history of atrial fibrillation with a rapid ventricular response rate. He is on sotalol at this time. We will try and get additional records to see how he does. Depending on the findings further recommendations will be made. The Eliquis will be continued in a.m. and the heparin discontinued as there are no plans to intervene at this time. (3) Hypertension: PLAN: He does have a history of hypertension. He is on sotalol at this time and I will recommend that we add metoprolol as well as losartan and titrated as appropriate. HPI Consult Data Date of Consult: 05/01/24 HPI Narrative HPI Narrative: TIA RAM, is a 68 M who presents to the emergency room from a longterm with complaints of chest discomfort. In the emergency room he was noted to be semiresponsive but his EKG was suggestive of ST elevation in the anterior leads with an elevated troponin. He does have a history of myasthenia gravis PEG tube placement, trach and not particularly functional. His previous cardiac history is not known at this particular time. In the emergency room he was treated with intravenous heparin and diltiazem for his previous history of atrial fibrillation. Interventional cardiology was called to see whether he was a candidate for aggressive therapy to the Assistant Kitchen Manager but was not decided that based on his overall condition he should be treated with medical therapy. His initial EKG demonstrated hyperacute T waves noted in V1 through V6. No reciprocal ST depression however was noted. Repeated EKGs confirmed to the same. At this particular time that I am seeing him in consult he appears to be fairly comfortable in bed asleep with no complaints of chest pain. No other obvious history is able to be elicited from him. [facility] Medical History Gastrostomy in place Tracheostomy in place TIA (transient ischemic attack) Hypertension Myasthenia gravis with exacerbation Chronic respiratory failure Congestive cardiac failure Atrial flutter Bradycardia Iron deficiency anemia Chronic pain Diabetes 1.5, managed as type 2 Dysphagia GERD (gastroesophageal reflux disease) Hyperlipemia Afib Dyskinesia of esophagus Depression Anxiety Home Medications ?Medication ?Instructions ?Recorded ?Last Taken ?Type apixaban 5 mg tablet 5 mg feeding tube BID 04/30/24 Unknown History atorvastatin 40 mg tablet 40 mg feeding tube QHS 04/30/24 Unknown History azathioprine 50 mg tablet 50 mg feeding tube BID 04/30/24 Unknown History lactose-reduced food-fiber 0.07 250 ml feeding tube Q4H 04/30/24 Unknown History gram-1.5 kcal/mL liquid for tube feed (Isosource 1.5 Trever) dextromethorphan-guaifenesin 10 10 ml feeding tube Q6H 05/01/24 Unknown History mg-100 mg/5 mL oral syrup diclofenac sodium 1 % topical gel topical BID 05/01/24 Unknown History (Arthritis Pain (diclofenac)) docusate sodium 100 mg tablet 100 mg PO BID 05/01/24 Unknown History (Docuprene) duloxetine 60 mg capsule,delayed 60 mg feeding tube QHS 05/01/24 Unknown History release sprinkle (Drizalma Sprinkle) escitalopram oxalate 5 mg tablet 15 mg feeding tube DAILY 05/01/24 Unknown History ferrous sulfate 300 mg (60 mg 300 mg feeding tube BID 05/01/24 Unknown History iron)/5 mL oral liquid fluticasone propionate 50 2 spray intranasal BID 05/01/24 Unknown History mcg/actuation nasal spray,suspension (24 Hour Allergy Relief) furosemide 20 mg tablet 20 mg feeding tube DAILY 05/01/24 Unknown History insulin glargine 100 unit/mL (3 15 unit subcut BID 05/01/24 Unknown History mL) subcutaneous pen (Lantus Solostar U-100 Insulin) insulin lispro 100 unit/mL See Protocol subcut Q6H 05/01/24 Unknown History subcutaneous pen (Humalog KwikPen (U-100) Insulin) memantine 5 mg tablet 5 mg feeding tube BID 05/01/24 Unknown History pramipexole 0.25 mg tablet 0.25 mg feeding tube DAILY 05/01/24 Unknown History pramipexole 0.5 mg tablet 0.5 mg feeding tube QHS 05/01/24 Unknown History prednisone 20 mg tablet 20 mg feeding tube DAILY 05/01/24 Unknown History pregabalin 100 mg capsule (Lyrica) 100 mg feeding tube TID 05/01/24 Unknown History pyridostigmine bromide 60 mg tablet 60 mg feeding tube QHS 05/01/24 Unknown History pyridostigmine bromide 60 mg tablet 120 mg feeding tube ACHS 05/01/24 Unknown History sennosides 8.6 mg-docusate sodium 2 tab-cap PO DAILY 05/01/24 Unknown History 50 mg tablet (Stool Softener-Laxative) sotalol 80 mg tablet (Betapace) 40 mg feeding tube BID 05/01/24 Unknown History sulfamethoxazole 800 1 tab feeding tube MOWEFR 05/01/24 Unknown History mg-trimethoprim 160 mg tablet (Bactrim DS) Allergy/AdvReac Type Severity Reaction Status Date / Time amlodipine Allergy Unknown PT UNABLE Verified 04/30/24 23:56 TO RESPOND-NEEDS F/U amoxicillin Allergy Unknown PT UNABLE Verified 04/30/24 23:56 TO RESPOND-NEEDS F/U atorvastatin Allergy Unknown PT UNABLE Verified 04/30/24 23:56 TO RESPOND-NEEDS F/U cyclobenzaprine Allergy Unknown PT UNABLE Verified 04/30/24 23:56 TO RESPOND-NEEDS F/U diclofenac Allergy Unknown PT UNABLE Verified 04/30/24 23:56 TO RESPOND-NEEDS F/U diltiazem Allergy Unknown PT UNABLE Verified 04/30/24 23:56 TO RESPOND-NEEDS F/U esomeprazole Allergy Unknown PT UNABLE Verified 04/30/24 23:56 TO RESPOND-NEEDS F/U famotidine Allergy Unknown PT UNABLE Verified 04/30/24 23:56 TO RESPOND-NEEDS F/U gabapentin Allergy Unknown PT UNABLE Verified 04/30/24 23:56 TO RESPOND-NEEDS F/U haloperidol Allergy Unknown PT UNABLE Verified 04/30/24 23:56 TO RESPOND-NEEDS F/U immune globulin,alpha (IgA) Allergy Unknown PT UNABLE Verified 04/30/24 23:56 average 46 mcg/mL TO RESPOND-NEEDS F/U ketamine Allergy Unknown PT UNABLE Verified 04/30/24 23:56 TO RESPOND-NEEDS F/U ketorolac Allergy Unknown PT UNABLE Verified 04/30/24 23:56 TO RESPOND-NEEDS F/U lansoprazole Allergy Unknown PT UNABLE Verified 04/30/24 23:56 TO RESPOND-NEEDS F/U morphine Allergy Unknown PT UNABLE Verified 04/30/24 23:56 TO RESPOND-NEEDS F/U nifedipine Allergy Unknown PT UNABLE Verified 04/30/24 23:56 TO RESPOND-NEEDS F/U pantoprazole Allergy Unknown PT UNABLE Verified 04/30/24 23:56 TO RESPOND-NEEDS F/U prochlorperazine Allergy Unknown PT UNABLE Verified 04/30/24 23:56 TO RESPOND-NEEDS F/U promethazine Allergy Unknown PT UNABLE Verified 04/30/24 23:56 TO RESPOND-NEEDS F/U zolpidem Allergy Unknown PT UNABLE Verified 04/30/24 23:56 TO RESPOND-NEEDS F/U Family History unable to obtain Surgical History unable to obtain Social History Smoking Status: Unknown if ever smoked ROS ROS Narrative Difficult to obtain due to his general cognitive status. Review of Systems ROS Unobtainable: due to endotracheal tube and due to mental status Physical Exam Const no apparent distress HEENT Head and Scalp: atraumatic Eyes EOMs intact bilaterally Neck General: normal visual inspection Chest inspection of chest normal and palpation of chest normal Resp normal respiratory effort Resp Narrative: Tracheostomy Auscultation: clear to auscultation bilaterally Cardio regular rate, regular rhythm, S1 normal heart sound and S2 normal heart sound Jugular Venous Distention: JVD GI normal to inspection, nondistended, normoactive bowel sounds GI Narrative: PEG tube Extremity normal capillary refill and no pedal edema Peripheral Pulses: Yes pulses 2+ throughout and femoral pulses present Skin no rashes or lesions noted Neuro oriented x3 and CN's II-XII intact bilaterally Psych Appearance: grossly normal and appropriate Risk Stratification Risk Stratification Applicable: Yes Age >/= 65: Yes >/= 3 CAD Risk Factors (HTN, HLD, DM, family hx of CAD, or current smoker): Yes Aspirin Use in the Past 7 Days: No Severe Angina (>/= episodes in 24 hours): Yes EKG ST Changes >/= 0.5mm: Yes Positive Cardiac Marker: Yes BARRETT Risk Stratification Score: 5 BARRETT % Risk: 25% Risk Objective Data Vital Signs: Vital Signs Temp Pulse Resp BP Pulse Ox O2 Del Method O2 Flow Rate 97.8 F 84 21 H 125/75 H 100 Trach Collar 5 12/22/24 08:00 05/01/24 08:00 05/01/24 08:00 05/01/24 08:00 05/01/24 08:00 05/01/24 08:00 05/01/24 08:00 FiO2 35 05/01/24 07:45 Oxygen Flow Rate (L/min) 5 Oxygen Delivery Method Trach Collar Weight: 168 lb 13.985 oz Body Mass Index (BMI) 22.8 Intake & Output: Intake and Output for Last 24 Hours 04/29/24 04/30/24 05/01/24 23:59 23:59 23:59 Intake Total 100 / 100 1159.48 / 1159.48 Balance 100 / 100 1159.48 / 1159.48 Lab / Micro Data 05/01/24 05:33 05/01/24 05:33 Labs: Laboratory Results - last 24 hr 04/30/24 23:48: WBC 19.6 H, RBC 3.73 L, Hgb 10.2 L, Hct 32.0 L, MCV 85.8, MCH 27.3, MCHC 31.9 L, RDW Std Deviation 50.4 H, RDW Coeff of Mauro 16.2 H, Plt Count 490 H, MPV 9.7, Immature Gran % (Auto) 4.500 H, Neut % (Auto) 79.6 H, Lymph % (Auto) 7.6 L, [place] % (Auto) 7.3, Eos % (Auto) 0.4, Baso % (Auto) 0.6, Absolute Neuts (auto) 15.6 H, Absolute Lymphs (auto) 1.49, Nucleated RBC % 0.1, PT 15.7 H, INR 1.3, APTT 30.8, Sodium 138, Potassium 3.7, Chloride 99, Carbon Dioxide 31.0, Anion Gap 7, BUN 40 H, Creatinine 1.08, Estim Creat Clear Calc 71.85, Est GFR (MDRD) Af Amer 87, Est GFR (MDRD) Non-Af 72, BUN/Creatinine Ratio 37.0 H, Glucose 187 H, Calcium 9.6, Total Bilirubin 0.40, Direct Bilirubin 0.13, AST 41 H, ALT 68 H, Alkaline Phosphatase 234 H, Troponin I High Sens 2354 H*, Total Protein 7.2, Albumin 2.9 L, Globulin 4.3 H, Lipase 94 H 05/01/24 00:50: Lactic Acid 2.5 H* 05/01/24 01:07: Urine Color Yellow, Urine Clarity Clear, Urine pH 8.0, Ur Specific [place] 1.015, Urine Protein 30 H, Urine Glucose (UA) Normal, Urine Ketones Negative, Urine Occult Blood 25 H, Urine Nitrite Negative, Urine Bilirubin Negative, Urine Urobilinogen Normal, Ur Leukocyte Esterase 500 H, Urine RBC 0 SEEN, Urine WBC 10-25 SEEN, Ur Squamous Epith Cells 0 SEEN, Urine Bacteria 2+, Urine Mucus 0 SEEN 05/01/24 02:35: Troponin I High Sens 5128 H* 05/01/24 05:33: WBC 20.3 H, RBC 3.54 L, Hgb 9.7 L, Hct 30.0 L, MCV 84.7, MCH 27.4, MCHC 32.3, RDW Std Deviation 49.1 H, RDW Coeff of Mauro 16.0 H, Plt Count 459 H, MPV 9.6, Immature Gran % (Auto) 1.600 H, Neut % (Auto) 83.7 H, Lymph % (Auto) 7.8 L, [place] % (Auto) 6.4, Eos % (Auto) 0.1, Baso % (Auto) 0.4, Absolute Neuts (auto) 17.0 H, Absolute Lymphs (auto) 1.59, Nucleated RBC % 0, Sodium 138, Potassium 3.2 L, Chloride 104, Carbon Dioxide 29.0, Anion Gap 5, BUN 34 H, Creatinine 0.88, Estim Creat Clear Calc 87.05, Est GFR (MDRD) Af Amer 110, Est GFR (MDRD) Non-Af 91, BUN/Creatinine Ratio 38.5 H, Glucose 177 H, Lactic Acid 1.9, Calcium 9.7, Troponin I High Sens 6230 H* 05/01/24 06:33: POC Glucose 186 H 05/01/24 07:39: APTT 63.3 H ABG Data ABG results: ABG 05/01/24 00:22 Specimen Type ART Sample Site L Radial pH 7.51 H Bicarbonate Actual 29.4 H Total CO2 31 Base Excess 6 H O2 Saturation 96 O2 % 30.0 ABG pCO2 37.0 ABG pO2 76 [place] Test Positive O2 Delivery Device T Collar Vent Mode Not entered Cardiology Labs/Tests 04/30/24 23:48: WBC 19.6 H, RBC 3.73 L, Hgb 10.2 L, Hct 32.0 L, MCV 85.8, MCH 27.3, MCHC 31.9 L, Plt Count 490 H, MPV 9.7, Immature Gran % (Auto) 4.500 H, Neut % (Auto) 79.6 H, Lymph % (Auto) 7.6 L, [place] % (Auto) 7.3, Eos % (Auto) 0.4, Baso % (Auto) 0.6, Absolute Neuts (auto) 15.6 H, Nucleated RBC % 0.1, PT 15.7 H, INR 1.3, APTT 30.8, Sodium 138, Potassium 3.7, Chloride 99, Carbon Dioxide 31.0, Anion Gap 7, BUN 40 H, Creatinine 1.08, Est GFR (MDRD) Af Amer 87, Est GFR (MDRD) Non-Af 72, BUN/Creatinine Ratio 37.0 H, Glucose 187 H, Calcium 9.6, Total Bilirubin 0.40, Direct Bilirubin 0.13 05/01/24 00:22: pH 7.51 H, Bicarbonate Actual 29.4 H, Base Excess 6 H, O2 Saturation 96, ABG pCO2 37.0, ABG pO2 76, [place] Test Positive 05/01/24 00:50: Lactic Acid 2.5 H* 05/01/24 01:07: Urine Color Yellow, Urine Clarity Clear, Urine pH 8.0, Ur Specific [place] 1.015, Urine Protein 30 H, Urine Glucose (UA) Normal, Urine Ketones Negative, Urine Occult Blood 25 H, Urine Nitrite Negative, Urine Bilirubin Negative, Urine Urobilinogen Normal, Ur Leukocyte Esterase 500 H, Urine RBC 0 SEEN, Urine WBC 10-25 SEEN 05/01/24 05:33: WBC 20.3 H, RBC 3.54 L, Hgb 9.7 L, Hct 30.0 L, MCV 84.7, MCH 27.4, MCHC 32.3, Plt Count 459 H, MPV 9.6, Immature Gran % (Auto) 1.600 H, Neut % (Auto) 83.7 H, Lymph % (Auto) 7.8 L, [place] % (Auto) 6.4, Eos % (Auto) 0.1, Baso % (Auto) 0.4, Absolute Neuts (auto) 17.0 H, Nucleated RBC % 0, Sodium 138, Potassium 3.2 L, Chloride 104, Carbon Dioxide 29.0, Anion Gap 5, BUN 34 H, Creatinine 0.88, Est GFR (MDRD) Af Amer 110, Est GFR (MDRD) Non-Af 91, BUN/Creatinine Ratio 38.5 H, Glucose 177 H, Lactic Acid 1.9, Calcium 9.7 05/01/24 07:39: APTT 63.3 H Rhythm: EKG: ECHO: Stress Test: Cardiac Cath: PCI: CT Surgery: Holter monitor: EPS: PPM: CXR: Chest CT Scan: Radiography Diagnostic Testing: Radiology Impression Chest X-Ray 04/30/24 23:59 IMPRESSION: No radiographic evidence of acute cardiopulmonary disease. Electronically Signed: Zachariah Kitchen MD at 0:39 EST ,
[2024-05-01] MEDS: Docusate Sodium 100 MG/10 ML UDC PO ×2 (10:42→21:50)
[2024-05-01] MEDS: Sotalol Hydrochloride 80 MG Tablet 40 MG GT ×2 (10:42→21:49)
[2024-05-01] MEDS: azaTHIOprine 50 MG Tablet GT ×2 (10:43→21:48)
[2024-05-01] MEDS: Memantine Hydrochloride 5 MG Tablet GT ×2 (10:45→21:48)
[2024-05-01] MEDS: Escitalopram Oxalate 10 MG Tablet 15 MG GT (10:46)
[2024-05-01] MEDS: Pramipexole Di-HCl 0.25 MG Tablet GT (10:46)
[2024-05-01] MEDS: Insulin Glargine-YFGN 100 UNIT/ML Pen 15 UNIT SC (10:51)
[2024-05-01] MEDS: Metoprolol Tartrate 25 MG Tablet PO ×2 (10:55→21:48)
--- NOTE | 2024-05-01 10:55 | NURSING ---
This RN received a phone call back from pt's POA Mike, who has been Maxime's partner for 21 years. Mike gives healthy history on Maxime, including that pt's Myasthenia Gravis treatments have been on hold due to a spinal infection and sepsis, for which he had been receiving antibiotics for the past few months. Mike was instructed that his contact information would be added to pt's chart. Mike denies further questions and is appreciative for the update. Tammy WREN
[2024-05-01] MEDS: Losartan Potassium 25 MG Tablet PO (10:56)
[2024-05-01] MEDS: 0.9% Saline Lock 10 ML Syringe IV ×4 (11:49→21:48)
[2024-05-01] MEDS: Ondansetron 4 MG/2 ML Vial IV (11:50)
--- NOTE | 2024-05-01 12:33 | PN_ITS ---
Subjective Subjective Patient seen and examined. He was able to mumble in response to questions, but I was unable to do review of systems. He was admitted from his [facility] o/a of chest pain and found to have nonstemi. EKG was initially concerning for STEMI but cardiology reviewed the EKG and did not think it was STEMi. He is on heparin drip. He has remained hemodynamically stable. Objective Data Objective Data Vital Signs: Vital Signs Temp Pulse Resp BP Pulse Ox O2 Del Method O2 Flow Rate 97.8 F 101 H 36 H 121/69 H 95 Trach Collar 5 05/01/24 08:00 05/01/24 10:55 05/01/24 09:00 05/01/24 09:00 05/01/24 09:00 05/01/24 09:00 05/01/24 09:00 FiO2 35 05/01/24 07:45 Oxygen Flow Rate (L/min) 5 Oxygen Delivery Method Trach Collar Weight: 168 lb 13.985 oz Body Mass Index (BMI) 22.8 Intake & Output: Intake and Output for Last 24 Hours 04/29/24 04/30/24 05/01/24 23:59 23:59 23:59 Intake Total 100 / 100 1188.31 / 1188.31 Balance 100 / 100 1188.31 / 1188.31 Lab / Micro Data 05/01/24 05:33 05/01/24 05:33 Labs: Laboratory Results - last 24 hr 04/30/24 23:48: WBC 19.6 H, RBC 3.73 L, Hgb 10.2 L, Hct 32.0 L, MCV 85.8, MCH 27.3, MCHC 31.9 L, RDW Std Deviation 50.4 H, RDW Coeff of Mauro 16.2 H, Plt Count 490 H, MPV 9.7, Immature Gran % (Auto) 4.500 H, Neut % (Auto) 79.6 H, Lymph % (Auto) 7.6 L, [place] % (Auto) 7.3, Eos % (Auto) 0.4, Baso % (Auto) 0.6, Absolute Neuts (auto) 15.6 H, Absolute Lymphs (auto) 1.49, Nucleated RBC % 0.1, PT 15.7 H , INR 1.3, APTT 30.8, Sodium 138, Potassium 3.7, Chloride 99, Carbon Dioxide 31.0, Anion Gap 7, BUN 40 H, Creatinine 1.08, Estim Creat Clear Calc 71.85, Est GFR (MDRD) Af Amer 87, Est GFR (MDRD) Non-Af 72, BUN/Creatinine Ratio 37.0 H, G [place] 187 H, Calcium 9.6, Total Bilirubin 0.40, Direct Bilirubin 0.13, AST 41 H , ALT 68 H, Alkaline Phosphatase 234 H, Troponin I High Sens 2354 H*, Total Protein 7.2, Albumin 2.9 L, Globulin 4.3 H, Lipase 94 H 05/01/24 00:50: Lactic Acid 2.5 H* 05/01/24 01:07: Urine Color Yellow, Urine Clarity Clear, Urine pH 8.0, Ur Specific [place] 1.015, Urine Protein 30 H, Urine Glucose (UA) Normal, Urine Ketones Negative, Urine Occult Blood 25 H, Urine Nitrite Negative, Urine Bilirubin Negative, Urine Urobilinogen Normal, Ur Leukocyte Esterase 500 H, Urine RBC 0 SEEN, Urine WBC 10-25 SEEN, Ur Squamous Epith Cells 0 SEEN, Urine Bacteria 2+, Urine Mucus 0 SEEN 05/01/24 02:35: Troponin I High Sens 5128 H* 05/01/24 05:33: WBC 20.3 H, RBC 3.54 L, Hgb 9.7 L, Hct 30.0 L, MCV 84.7, MCH 27.4, MCHC 32.3, RDW Std Deviation 49.1 H, RDW Coeff of Mauro 16.0 H, Plt Count 459 H, MPV 9.6, Immature Gran % (Auto) 1.600 H, Neut % (Auto) 83.7 H, Lymph % (Auto) 7.8 L, [place] % (Auto) 6.4, Eos % (Auto) 0.1, Baso % (Auto) 0.4, Absolute Neuts (auto) 17.0 H, Absolute Lymphs (auto) 1.59, Nucleated RBC % 0, Sodium 138, Potassium 3.2 L, Chloride 104, Carbon Dioxide 29.0, Anion Gap 5, BUN 34 H, Creatinine 0.88, Estim Creat Clear Calc 87.05, Est GFR (MDRD) Af Amer 110, Est GFR (MDRD) Non-Af 91, BUN/Creatinine Ratio 38.5 H, Glucose 177 H, Lactic Acid 1.9, Calcium 9.7, Troponin I High Sens 6230 H* 05/01/24 06:33: POC Glucose 186 H 05/01/24 07:39: APTT 63.3 H ABG Data ABG results: ABG 05/01/24 00:22 Specimen Type ART Sample Site L Radial pH 7.51 H Bicarbonate Actual 29.4 H Total CO2 31 Base Excess 6 H O2 Saturation 96 O2 % 30.0 ABG pCO2 37.0 ABG pO2 76 [place] Test Positive O2 Delivery Device T Collar Vent Mode Not entered Radiography Diagnostic Testing: Radiology Impression Chest X-Ray 04/30/24 23:59 IMPRESSION: No radiographic evidence of acute cardiopulmonary disease. Electronically Signed: Zachariah Kitchen MD at 0:39 EST , Physical Exam Const alert Constitutional Narrative: lethargic, mumbles in response to questions HEENT normocephalic and head/scalp atraumatic Eyes PERRL Lymph Lymphatic: no lymphadenopathy noted and no lymphedema noted Resp normal respiratory effort, normal air movement and clear to auscultation bilaterally Cardio regular rate, regular rhythm, S1 normal heart sound, S2 normal heart sound and no murmurs GI normal to inspection, nondistended, normoactive bowel sounds, soft to palpation and non-tender GI Narrative: PEG tube in situ Extremity normal capillary refill and no clubbing, cyanosis or edema Skin Skin Narrative: SC pain pump in situ Neuro Neuro Narrative: LUE weakness, with Power of 0/5 Motor Exam: general weakness Assessment & Plan Assessment/Plan (1) Atrial fibrillation with RVR: (2) NSTEMI, initial episode of care: PLAN: Plan #nonstemi * patient admitted with a complaint of chest pain. There was initial concern for STEMI but cardiology reviewed the images and did not think he had STEMI * on hpearin drip. * cardiology reviewed him today and recommended that he be treated medically; to continue with the heparin drip for now. * continue high intensity statin * 2D echo ordered; to be done tomorrow. * On metoprolol and lisinopril * #UTI: urinalysis was elevated at 19. On IV ceftriaxone. Urine cultures pending. #History of myasthenia gravis * s/p trach and PEG * on tube feeds. Nutrition on board * Records requested from [facility] where he was for a long period receiving antibiotics for prior spine infection. It appears his left upper extremity weakness is chronic due to the myasthenia gravis. Apparently he has not had treatment for the myasthenia gravis for several months due to him receiving the antibiotics and select. * Will need follow-up with his neurologist on outpatient basis. * On pyridostigmine and prednisone * #TYpe 2 diabetes mellitus: on lantus 15 units twice daily. ISS. Accuchecks ACHS #A-fib with RVR: cardizem drip. This was discontinued by cardiology. On sotalol. Currently rate controlled. #ANxiety and depression: On Lexapro and duloxetine #Dementia: On memantine #Hypertension: Losartan and metoprolol DVT prophylaxis: Remains on heparin drip. Charges/Coding Visit Charges Inpatient E&M: 40825 Subs Hosp L3
[2024-05-01 14:41] LABS: Bedside Glucose 204 mg/dL (74-106)
[2024-05-01] MEDS: Jevity 1.5 1,000 ML 55 ML GT (15:15)
[2024-05-01] MEDS: Insulin Lispro 100 UNIT/ML INSULN.PEN SC ×2 (15:33→17:57)
[2024-05-01 18:17] LABS: Bedside Glucose 205 mg/dL (74-106)
--- NOTE | 2024-05-01 18:36 | EKG12_ITS ---
Test Reason : UNRESPONSIVE Blood Pressure : */* mmHG Vent. Rate : 109 BPM Atrial Rate : 109 BPM P-R Int : 150 ms QRS Dur : 86 ms QT Int : 422 ms P-R-T Axes : 42 -38 36 degrees QTcB Int : 568 ms Critical Test Result: Long QTc Sinus tachycardia with Premature supraventricular complexes and with frequent Premature ventricular c omplexes Left axis deviation Minimal voltage criteria for LVH, may be normal variant ( R in aVL ) Anterolateral infarct , age undetermined Abnormal ECG Confirmed by WILY MAURICIO, SALVATORE ([id number]), editor publications SHILOH HUMPHRIES ([id number]) on 05/02/2024 7:11:47 AM Referred By: MADDIE Confirmed By: SALVATORE JULIEN MD
[2024-05-01] MEDS: Pramipexole Di-HCl 0.5 MG Tablet GT (21:50)
[2024-05-01] MEDS: HEPARIN/D5w 25,000 UNITS 25,000 UNITS/250 ML IV.SOLN. 11 UNITS CONT INF (21:50)
[2024-05-01 22:36] LABS: Partial Thromboplast Time 72.7 Seconds (24.1-36.2)
[2024-05-02] VITALS (18 sets, daily range): BP systolic 113–164; BP diastolic 83–110; PULSE 90–122; RESP 25–44; TEMP 36.4–37.8; O2SAT 94–99; BMI 22.8
[2024-05-02] MEDS: Insulin Glargine-YFGN 100 UNIT/ML Pen 15 UNIT SC ×2 (00:29→09:32)
[2024-05-02] MEDS: Insulin Lispro 100 UNIT/ML INSULN.PEN SC ×4 (00:29→17:21)
[2024-05-02 00:53] LABS: Bedside Glucose 204 mg/dL (74-106)
[2024-05-02 03:58] LABS: Allen Test Positive; Base Excess 5 mmol/L (-2 to +2); Bicarbonate 27.7 mmol/L (22-26); Blood Gas Specimen Type ART; Mode Not entered; O2 Delivery Device T Collar; PO2 84 mmHG (75-100); SITE L Radial; SO2 97 % (95-99); Total Carbon Dioxide 29 mmol/L; pCO2 34.1 mmHg (35-45); pH 7.52 (7.35-7.45)
[2024-05-02 04:45] LABS: Absolute Lymphocyte Count 1.25 X10^3/uL (0.83-4.51); Absolute Neutrophil Count 13.6 X10^3/uL (2.0-7.7); Basophil# 0.05 X10^3/uL; Basophil% 0.3 % (0-1); Eosinophil# 0.07 X10^3/uL; Eosinophils% 0.4 % (0-5); Hematocrit 29.6 % (40-54); Hemoglobin 9.5 g/dL (13.0-16.5); Lymphocyte # 1.25 X10^3/ul (0.83-4.51); Lymphocyte % 7.7 % (19-41); Mean Corp Hgb Conc 32.1 g/dL (32-36); Mean Corpuscular Hgb 27.2 pg (27.0-32.0); Mean Corpuscular Volume 84.8 fL (80-94); Mean Platelet Vol. 9.7 fl (6.2-12.0); Monocyte# 1.15 X10^3/uL; Monocyte% 7.1 % (0-10); NRBC Flagged by Analyzer 0 % (0-5); Neutrophil # 13.55 X10^3/uL (2.7-7.7); Neutrophil % 83.7 % (47-70); Platelet Count 387 K/mm3 (150-450); RBC Distribution Width CV 16.3 % (11.6-14.6); RBC Distribution Width SD 49.6 fl (35.1-43.9); Red Blood Count 3.49 M/mm3 (4.6-6.2); White Blood Count 16.2 K/mm3 (4.4-11.0)
[2024-05-02 04:56] LABS: Partial Thromboplast Time 62.4 Seconds (24.1-36.2)
[2024-05-02 04:58] LABS: Anion Gap 6 (5-15); BUN 33 mg/dL (7-18); BUN/Creat Ratio 36.7 RATIO (10-20); Calcium,Total 9.5 mg/dL (8.5-10.1); Chloride 104 mmol/L (98-107); EST Glomerular Filtration Rate 89 mL/min (>60); Est Glom Filt Rate - Afr Amer 108 mL/min (>60); Estimated Creatinine Clearance 85.11 ml/min; Glucose 201 mg/dL (74-106); Potassium 2.9 mmol/L (3.5-5.1); Sodium Level 140 mmol/L (136-145)
[2024-05-02] MEDS: LORazepam 2 MG/ML Syringe 0.5 MG IV (05:54)
[2024-05-02 06:14] LABS: Bedside Glucose 196 mg/dL (74-106)
--- NOTE | 2024-05-02 09:10 | CASEMGMT ---
Discharge Planning Per pts POA, Mike, pt will return to . Updates sent via [facility] with request for copies of advanced directives. Danielle Bahena DC Planning Asst.
[2024-05-02] MEDS: Ferrous Sulfate 300 MG/5 ML UDC GT ×2 (09:31→17:22)
[2024-05-02] MEDS: Docusate Sodium 100 MG/10 ML UDC PO ×2 (09:31→23:53)
[2024-05-02] MEDS: Metoprolol Tartrate 25 MG Tablet PO (09:33)
[2024-05-02] MEDS: Memantine Hydrochloride 5 MG Tablet GT (09:33)
[2024-05-02] MEDS: azaTHIOprine 50 MG Tablet GT (09:33)
[2024-05-02] MEDS: Escitalopram Oxalate 10 MG Tablet 15 MG GT (09:33)
[2024-05-02] MEDS: Pramipexole Di-HCl 0.25 MG Tablet GT (09:33)
[2024-05-02] MEDS: Sotalol Hydrochloride 80 MG Tablet 40 MG GT ×2 (09:33→23:53)
[2024-05-02] MEDS: Losartan Potassium 25 MG Tablet PO (09:34)
[2024-05-02] MEDS: predniSONE 20 MG Tablet GT (09:34)
--- NOTE | 2024-05-02 10:01 | EKG12_ITS ---
Test Reason : Blood Pressure : */* mmHG Vent. Rate : 110 BPM Atrial Rate : 110 BPM P-R Int : 146 ms QRS Dur : 84 ms QT Int : 374 ms P-R-T Axes : 2 -51 57 degrees QTcB Int : 506 ms Sinus tachycardia Left axis deviation Inferior infarct (cited on or before 01-May-2024) Anterolateral infarct (cited on or before 30-Apr-2024) Abnormal ECG When compared with ECG of 01-May-2024 19:09, Serial changes of Anterior infarct Present Confirmed by SALVATORE JULIEN MD ([id number]), editorial specialist SHILOH HUMPHRIES ([id number]) on 05/05/2024 2:28:01 PM Referred By: WILY Confirmed By: SALVATORE JULIEN MD
--- NOTE | 2024-05-02 10:25 | RAD_ITS ---
INDICATION: Change in respiratory status EXAMINATION/TECHNIQUE: X-RAY - XR Chest 1 View COMPARISON: May 01, 2024 FINDINGS: LINES/DEVICES: There is a tracheostomy in place that is stable. LUNGS: No new consolidation, edema or effusion. No pneumothorax. MEDIASTINUM AND CARDIOVASCULAR STRUCTURES: Cardiac silhouette not enlarged. Central airways and mediastinal contour are unremarkable. BONES AND SOFT TISSUES: There is evidence of multilevel vertebroplasty or kyphoplasty of the thoracic and lumbar spine. RAD/Chest 1 View (Portable) IMPRESSION: No radiographic evidence of acute cardiopulmonary disease. Electronically Signed: Susy Stevenson MD at 12:33 EST ,
--- NOTE | 2024-05-02 10:25 | NURSING ---
Dr. Bryant in at bedside to asses the patient. CXR, ABGs and Tylenol ordered
[2024-05-02] MEDS: Acetaminophen 650 MG/20 ML UDC GT ×2 (10:38→15:17)
[2024-05-02 11:38] LABS: Base Excess 3 mmol/L (-2 to +2); Bicarbonate 25.9 mmol/L (22-26); Blood Gas Specimen Type ART; Mode Not entered; O2 Delivery Device T Collar; PO2 81 mmHG (75-100); SITE L Radial; SO2 97 % (95-99); Total Carbon Dioxide 27 mmol/L; pCO2 33.7 mmHg (35-45); pH 7.49 (7.35-7.45)
[2024-05-02 11:44] LABS: Bedside Glucose 241 mg/dL (74-106)
[2024-05-02] MEDS: Jevity 1.5 1,000 ML 55 ML GT (14:00)
[2024-05-02] MEDS: HEPARIN/D5w 25,000 UNITS 25,000 UNITS/250 ML IV.SOLN. 11 UNITS CONT INF (15:36)
[2024-05-02] MEDS: HYDROmorphone 0.5 MG/0.5 ML SYRINGE IV (15:58)
--- NOTE | 2024-05-02 16:12 | PCM.PN.CARD ---
Subjective Subjective Patient seen and evaluated Objective Data Vital Signs: Vital Signs Temp Pulse Resp BP Pulse Ox O2 Del Method O2 Flow Rate 99.1 F 98 32 H 149/84 H 98 Trach Collar 5 05/02/24 13:00 05/02/24 13:00 05/02/24 13:00 05/02/24 13:00 05/02/24 13:00 05/02/24 13:19 05/02/24 13:19 FiO2 28 05/02/24 07:59 Oxygen Flow Rate (L/min) 5 Oxygen Delivery Method Trach Collar Weight: 168 lb 13.985 oz Body Mass Index (BMI) 22.8 Intake & Output: Intake and Output for Last 24 Hours 04/30/24 05/01/24 05/02/24 23:59 23:59 23:59 Intake Total 100 / 100 1549.09 / 1549.09 1495.43 / 1495.43 Output Total 725 / 725 Balance 100 / 100 1549.09 / 1549.09 770.43 / 770.43 Lab / Micro Data 05/02/24 04:37 05/02/24 04:37 Labs: Laboratory Results - last 24 hr 05/01/24 17:56: POC Glucose 205 H 05/01/24 22:17: APTT 72.7 H 05/02/24 00:28: POC Glucose 204 H 05/02/24 04:37: WBC 16.2 H, RBC 3.49 L, Hgb 9.5 L, Hct 29.6 L, MCV 84.8, MCH 27.2, MCHC 32.1, RDW Std Deviation 49.6 H, RDW Coeff of Mauro 16.3 H, Plt Count 387, MPV 9.7, Immature Gran % (Auto) 0.800, Neut % (Auto) 83.7 H, Lymph % (Auto) 7.7 L, [place] % (Auto) 7.1, Eos % (Auto) 0.4, Baso % (Auto) 0.3, Absolute Neuts (auto) 13.6 H, Absolute Lymphs (auto) 1.25, Nucleated RBC % 0, APTT 62.4 H, Sodium 140, Potassium 2.9 L, Chloride 104, Carbon Dioxide 30.0, Anion Gap 6, BUN 33 H, Creatinine 0.90, Estim Creat Clear Calc 85.11, Est GFR (MDRD) Af Amer 108, Est GFR (MDRD) Non-Af 89, BUN/Creatinine Ratio 36.7 H, Glucose 201 H, Calcium 9.5 05/02/24 05:54: POC Glucose 196 H 05/02/24 11:13: POC Glucose 241 H Micro: Microbiology 05/01/24 00:52 Blood Culture (Wb) - Anticubital Right Bacteria Detection (PCR) - Final Coag Negative Staph 05/01/24 00:52 Blood Culture (Wb) - Anticubital Right Blood Culture - Preliminary ABG Data ABG results: ABG 05/02/24 05/02/24 03:53 11:34 Specimen Type ART ART Sample Site L Radial L Radial pH 7.52 H 7.49 H Bicarbonate Actual 27.7 H 25.9 Total CO2 29 27 Base Excess 5 H 3 H O2 Saturation 97 97 O2 % 28.0 28.0 ABG pCO2 34.1 L 33.7 L ABG pO2 84 81 [place] Test Positive O2 Delivery Device T Collar T Collar Vent Mode Not entered Not entered Cardiology Labs/Tests 05/01/24 22:17: APTT 72.7 H 05/02/24 03:53: pH 7.52 H, Bicarbonate Actual 27.7 H, Base Excess 5 H, O2 Saturation 97, ABG pCO2 34.1 L, ABG pO2 84, [place] Test Positive 05/02/24 04:37: WBC 16.2 H, RBC 3.49 L, Hgb 9.5 L, Hct 29.6 L, MCV 84.8, MCH 27.2, MCHC 32.1, Plt Count 387, MPV 9.7, Immature Gran % (Auto) 0.800, Neut % (Auto) 83.7 H, Lymph % (Auto) 7.7 L, [place] % (Auto) 7.1, Eos % (Auto) 0.4, Baso % (Auto) 0.3, Absolute Neuts (auto) 13.6 H, Nucleated RBC % 0, APTT 62.4 H, Sodium 140, Potassium 2.9 L, Chloride 104, Carbon Dioxide 30.0, Anion Gap 6, BUN 33 H, Creatinine 0.90, Est GFR (MDRD) Af Amer 108, Est GFR (MDRD) Non-Af 89, BUN/Creatinine Ratio 36.7 H, Glucose 201 H, Calcium 9.5 05/02/24 11:34: pH 7.49 H, Bicarbonate Actual 25.9, Base Excess 3 H, O2 Saturation 97, ABG pCO2 33.7 L, ABG pO2 81 Rhythm: EKG: ECHO: Stress Test: Cardiac Cath: PCI: CT Surgery: Holter monitor: EPS: PPM: CXR: Chest CT Scan: Radiography Diagnostic Testing: Radiology Impression Echocardiogram 05/01/24 03:57 Interpretation Summary The left ventricular ejection fraction is 25 %. Moderately severe segmental systolic dysfunction (see wall motion). Normal LV size. Contrast injection was performed. Ordering Physician: Ace Agosto Performed By: Thang Lerner RCS Chest X-Ray 05/02/24 10:25 IMPRESSION: No radiographic evidence of acute cardiopulmonary disease. Electronically Signed: Susy Stevenson MD at 12:33 EST , Physical Exam Const no apparent distress HEENT Head and Scalp: atraumatic Eyes EOMs intact bilaterally Neck General: normal visual inspection Chest inspection of chest normal and palpation of chest normal Resp normal respiratory effort Resp Narrative: Tracheostomy Auscultation: clear to auscultation bilaterally Cardio regular rate, regular rhythm, S1 normal heart sound and S2 normal heart sound Jugular Venous Distention: JVD GI normal to inspection, nondistended, normoactive bowel sounds GI Narrative: PEG tube Extremity normal capillary refill and no pedal edema Peripheral Pulses: Yes pulses 2+ throughout and femoral pulses present Skin no rashes or lesions noted Neuro oriented x3 and CN's II-XII intact bilaterally Psych Appearance: grossly normal and appropriate Assessment & Plan Assessment/Plan (1) STEMI (ST elevation myocardial infarction): PLAN: Patient presented with EKG changes suggestive of the same. However it was determined that medical therapy should be pursued. Echocardiogram done today demonstrates wall motion abnormalities involving the anterior apical and inferoapical wall estimated ejection fraction of 25% He does not appear to be complaining of any chest pain at this time, and therefore the plan will be to pursue medical therapy with a beta-yue and MONA inhibitor. Will also continue on the high intensity statin. Further discussion with the patient's ex significant other who is his only power of employee benefits attorney suggested that he had a stent placed in 2007 and an unknown vessel. He also had an irregular heartbeat and reduced ejection fraction. He says that he knows that the patient does not want any heroic measures such as intubation or prolonged ventilation. I did discuss with him the issue of pursuing a left heart catheterization and he thinks that at this time we should pursue medical therapy as he is not in any discomfort. We went through this in detail with the risk benefits and alternatives. At this point in time the plan is to pursue medical therapy. Above also discussed with hospitalist (2) Atrial fibrillation with RVR: PLAN: He apparently has a history of atrial fibrillation with a rapid ventricular response rate. He is on sotalol at this time. We will try and get additional records to see how he does. Depending on the findings further recommendations will be made. The Eliquis will be continued in a.m. and the heparin discontinued as there are no plans to intervene at this time. (3) Hypertension: PLAN: He does have a history of hypertension. He is on sotalol at this time and I will recommend that we add metoprolol as well as losartan and titrated as appropriate.
--- NOTE | 2024-05-02 19:12 | PCM.PN.HOSP ---
Reason for Visit Reason for Visit: Diagnoses Essential (primary) hypertension (05/01/24) ST elevation (STEMI) myocardial infarction of unspecified site (05/01/24) Non-ST elevation (NSTEMI) myocardial infarction (05/01/24) Acute ischemic heart disease, unspecified (05/01/24) Unspecified atrial fibrillation (05/01/24) Urinary tract infection, site not specified (05/01/24) Other specified abnormal findings of blood chemistry (05/01/24) Subjective Subjective Patient was seen and examined today, he is nonverbal, he does not appear to be in any distress although his respirations are shallow and rapid, I ordered an arterial blood gas today, patient was mildly alkalotic and pCO2 and pO2 were acceptable. This was done on 5 L via trach mask. Patient also had a chest x-ray performed today which did not show any acute process. I talked at length with his POA and I also talked by phone with his daughter, it appears that the patient may have a positive blood culture, according to the patient's POA and daughter, patient was treated for quite some time for an infection which originated in his spine-it is unknown whether this was in the lumbar spine or thoracic or cervical spine area. I also do not know if an organism was identified. According to the patient's family, he was in the hospital at [facility] For approximately a month and then at [facility] for approximately 3 weeks. I also talked with the patient's POA about his CODE STATUS, he continues to state that the patient is a DNR CC arrest with intubation if necessary. Objective Data Objective Data Vital Signs: Vital Signs Temp Pulse Resp BP Pulse Ox O2 Del Method O2 Flow Rate 99.1 F 98 32 H 149/84 H 98 Trach Collar 5 05/02/24 13:00 05/02/24 13:00 05/02/24 13:00 05/02/24 13:00 05/02/24 13:00 05/02/24 13:19 05/02/24 13:19 FiO2 28 05/02/24 07:59 Oxygen Flow Rate (L/min) 5 Oxygen Delivery Method Trach Collar Weight: 76.6 kg Body Mass Index (BMI) 22.8 Intake & Output: Intake and Output for Last 24 Hours 04/30/24 05/01/24 05/02/24 23:59 23:59 23:59 Intake Total 100 / 100 1549.09 / 1549.09 1514.86 / 1514.86 Output Total 1125 / 1125 Balance 100 / 100 1549.09 / 1549.09 389.86 / 389.86 Lab / Micro Data 05/02/24 04:37 05/02/24 04:37 Labs: Laboratory Results - last 24 hr 05/01/24 22:17: APTT 72.7 H 05/02/24 00:28: POC Glucose 204 H 05/02/24 04:37: WBC 16.2 H, RBC 3.49 L, Hgb 9.5 L, Hct 29.6 L, MCV 84.8, MCH 27.2, MCHC 32.1, RDW Std Deviation 49.6 H, RDW Coeff of Mauro 16.3 H, Plt Count 387, MPV 9.7, Immature Gran % (Auto) 0.800, Neut % (Auto) 83.7 H, Lymph % (Auto) 7.7 L, [place] % (Auto) 7.1, Eos % (Auto) 0.4, Baso % (Auto) 0.3, Absolute Neuts (auto) 13.6 H, Absolute Lymphs (auto) 1.25, Nucleated RBC % 0, APTT 62.4 H, Sodium 140, Potassium 2.9 L, Chloride 104, Carbon Dioxide 30.0, Anion Gap 6, BUN 33 H, Creatinine 0.90, Estim Creat Clear Calc 85.11, Est GFR (MDRD) Af Amer 108, Est GFR (MDRD) Non-Af 89, BUN/Creatinine Ratio 36.7 H, Glucose 201 H, Calcium 9.5 05/02/24 05:54: POC Glucose 196 H 05/02/24 11:13: POC Glucose 241 H Micro: Microbiology 05/01/24 00:52 Blood Culture (Wb) - Anticubital Right Bacteria Detection (PCR) - Final Coag Negative Staph 05/01/24 00:52 Blood Culture (Wb) - Anticubital Right Blood Culture - Preliminary ABG Data ABG results: ABG 05/02/24 05/02/24 03:53 11:34 Specimen Type ART ART Sample Site L Radial L Radial pH 7.52 H 7.49 H Bicarbonate Actual 27.7 H 25.9 Total CO2 29 27 Base Excess 5 H 3 H O2 Saturation 97 97 O2 % 28.0 28.0 ABG pCO2 34.1 L 33.7 L ABG pO2 84 81 [place] Test Positive O2 Delivery Device T Collar T Collar Vent Mode Not entered Not entered Radiography Diagnostic Testing: Radiology Impression Echocardiogram 05/01/24 03:57 Interpretation Summary The left ventricular ejection fraction is 25 %. Moderately severe segmental systolic dysfunction (see wall motion). Normal LV size. Contrast injection was performed. Ordering Physician: Ace Agosto Performed By: Thang Lerner RCS Chest X-Ray 05/02/24 10:25 IMPRESSION: No radiographic evidence of acute cardiopulmonary disease. Electronically Signed: Susy Stevenson MD at 12:33 EST , Physical Exam Const alert and no apparent distress Constitutional Narrative: Patient is nonverbal General Appearance: well kempt and well developed Orientation / Consciousness: awake HEENT normocephalic, head/scalp atraumatic and moist oral mucous membranes HEENT Narrative: Patient has a tracheostomy Head and Scalp: normocephalic Eyes PERRL, EOMs intact bilaterally and conjunctivae normal Neck no JVD Neck Narrative: Patient has a tracheostomy Resp normal respiratory effort and clear to auscultation bilaterally Resp Narrative: Patient has shallow respirations which are rapid, he does not appear to be in any distress however Auscultation: Negative for rales, rhonchi or wheezes Cardio regular rate, regular rhythm, S1 normal heart sound, S2 normal heart sound, no murmurs, no rub and no gallops GI normal to inspection, nondistended, normoactive bowel sounds, soft to palpation, non-tender and non-distended GI Narrative: Patient is a PEG tube in place Extremity Extremity Narrative: There is mild generalized edema of the patient's lower legs bilaterally, there are stasis dermatitis changes of the lower legs bilaterally. Skin no rashes or lesions noted General Skin Exam: no breakdown Neuro CN's II-XII intact bilaterally Sensorium / Orientation: awake and alert Psych Psych Narrative: Patient does not speak Assessment & Plan Assessment/Plan (1) NSTEMI, initial episode of care: PLAN: Plan 1. STEMI-patient's echocardiogram showed a reduced ejection fraction to 25%, supportive care will continue to be given by cardiology and cardiac medications will be adjusted by cardiology #2 positive blood cultures for coag negative staph-patient is currently on Rocephin, await final cultures #3 paroxysmal [id number] is currently in sinus rhythm, he remains on sotalol and Eliquis #4 acute UTI-patient remains on ceftriaxone #5 myasthenia gravis-complicates care, management, recovery, and prognosis #6 type 2 diabetes-patient remains on basal insulin and will receive sliding scale insulin per Accu-Chek #7 essential hypertension-patient will remain on his current medications Total clinical time spent by myself addressing the patient's medical issues, reviewing all of his data, and collaborating with patient's care team: 35 minutes Charges/Coding Visit Charges Inpatient E&M: 73937 Subs Hosp L2
[2024-05-02] MEDS: Ondansetron 4 MG/2 ML Vial IV ×2 (19:53→20:37)
[2024-05-02] MEDS: APIXABAN 2.5 MG TABLET (WCH) PO (23:52)
[2024-05-02] MEDS: Scopolamine 1mg/72hr Patch 1 PATCH TD (23:52)
[2024-05-03] VITALS (17 sets, daily range): BP systolic 89–159; BP diastolic 76–101; PULSE 73–111; RESP 20–39; TEMP 36.4–37.3; O2SAT 92–100; BMI 22.4
[2024-05-03] MEDS: Metoprolol Tartrate 25 MG Tablet PO ×3 (00:03→22:11)
[2024-05-03] MEDS: azaTHIOprine 50 MG Tablet GT ×3 (00:03→22:11)
[2024-05-03] MEDS: Pramipexole Di-HCl 0.5 MG Tablet GT ×2 (00:05→22:13)
[2024-05-03] MEDS: Ceftriaxone 1 GM/50 ML BAG IV ×2 (00:08→22:14)
[2024-05-03 00:27] LABS: Bedside Glucose 262 mg/dL (74-106)
[2024-05-03 00:27] LABS: Bedside Glucose 137 mg/dL (74-106)
[2024-05-03] MEDS: HYDROmorphone 0.5 MG/0.5 ML SYRINGE IV ×4 (00:42→22:09)
[2024-05-03] MEDS: Insulin Lispro 100 UNIT/ML INSULN.PEN SC ×3 (05:27→17:31)
[2024-05-03 05:47] LABS: Bedside Glucose 218 mg/dL (74-106)
[2024-05-03] MEDS: Ondansetron 4 MG/2 ML Vial IV ×3 (05:54→20:36)
[2024-05-03 08:17] LABS: Partial Thromboplast Time 28.9 Seconds (24.1-36.2)
[2024-05-03] MEDS: Ferrous Sulfate 300 MG/5 ML UDC GT ×2 (09:13→17:31)
[2024-05-03] MEDS: Acetaminophen 650 MG/20 ML UDC GT ×2 (09:13→22:10)
[2024-05-03] MEDS: Docusate Sodium 100 MG/10 ML UDC PO ×2 (09:13→22:10)
[2024-05-03] MEDS: APIXABAN 2.5 MG TABLET (WCH) PO ×2 (09:14→22:10)
[2024-05-03] MEDS: Escitalopram Oxalate 10 MG Tablet 15 MG GT (09:14)
[2024-05-03] MEDS: Pramipexole Di-HCl 0.25 MG Tablet GT (09:14)
[2024-05-03] MEDS: Sotalol Hydrochloride 80 MG Tablet 40 MG GT ×2 (09:15→22:10)
[2024-05-03] MEDS: Losartan Potassium 25 MG Tablet PO (09:15)
[2024-05-03] MEDS: predniSONE 20 MG Tablet GT (09:15)
[2024-05-03] MEDS: Insulin Glargine-YFGN 100 UNIT/ML Pen 15 UNIT SC ×2 (09:29→22:10)
[2024-05-03 12:07] LABS: Bedside Glucose 230 mg/dL (74-106)
--- NOTE | 2024-05-03 14:56 | WOUNDNOTE ---
wound photo: bilateral buttocks
[2024-05-03] MEDS: Jevity 1.5 1,000 ML 55 ML GT (15:05)
[2024-05-03] MEDS: 0.9% Saline Lock 10 ML Syringe IV ×3 (15:15→22:09)
--- NOTE | 2024-05-03 17:45 | PCM.PN.HOSP ---
Reason for Visit Reason for Visit: Diagnoses Essential (primary) hypertension (05/01/24) ST elevation (STEMI) myocardial infarction of unspecified site (05/01/24) Non-ST elevation (NSTEMI) myocardial infarction (05/01/24) Acute ischemic heart disease, unspecified (05/01/24) Unspecified atrial fibrillation (05/01/24) Urinary tract infection, site not specified (05/01/24) Other specified abnormal findings of blood chemistry (05/01/24) Subjective Subjective Patient was seen and examined today, he remains nonverbal at this time. Patient appears in no distress. Patient's blood culture was positive for Staph aureus but sensitivities are not back yet. Objective Data Objective Data Vital Signs: Vital Signs Temp Pulse Resp BP Pulse Ox O2 Del Method O2 Flow Rate 98.1 F 84 20 H 142/90 H 100 Trach Collar 6 05/03/24 17:00 05/03/24 17:00 05/03/24 17:00 05/03/24 17:00 05/03/24 17:00 05/03/24 17:00 05/03/24 17:00 FiO2 40 05/03/24 09:14 Oxygen Flow Rate (L/min) 6 Oxygen Delivery Method Trach Collar Weight: 74.8 kg Body Mass Index (BMI) 22.4 Intake & Output: Intake and Output for Last 24 Hours 05/01/24 05/02/24 05/03/24 23:59 23:59 23:59 Intake Total 1549.09 / 1549.09 1935.69 / 1935.69 1229.17 / 1229.17 Output Total 1125 / 1675 1425 / 1425 Balance 1549.09 / 1549.09 810.69 / 260.69 -195.83 / -195.83 Lab / Micro Data 05/02/24 04:37 05/02/24 04:37 Labs: Laboratory Results - last 24 hr 05/02/24 17:17: POC Glucose 262 H 05/02/24 23:50: POC Glucose 137 H 05/03/24 05:15: POC Glucose 218 H 05/03/24 07:57: APTT 28.9 05/03/24 11:40: POC Glucose 230 H Micro: Microbiology 05/01/24 00:52 Blood Culture (Wb) - Anticubital Right Bacteria Detection (PCR) - Final Coag Negative Staph 05/01/24 00:52 Blood Culture (Wb) - Anticubital Right Blood Culture - Preliminary Staphylococcus species 05/01/24 01:07 Urine Catheter - Catheter Urine Culture - Final Culture exhibits no growth. 05/01/24 00:50 Blood Culture (Wb) - Right Wrist Blood Culture - Preliminary No growth in 48 hours. Physical Exam Narrative alert and no apparent distress Constitutional Narrative: Patient is nonverbal General Appearance: well kempt and well developed Orientation / Consciousness: awake HEENT normocephalic, head/scalp atraumatic and moist oral mucous membranes HEENT Narrative: Patient has a tracheostomy Head and Scalp: normocephalic Eyes PERRL, EOMs intact bilaterally and conjunctivae normal Neck no JVD Neck Narrative: Patient has a tracheostomy Resp normal respiratory effort and clear to auscultation bilaterally Resp Narrative: Patient has shallow respirations which are rapid, he does not appear to be in any distress however Auscultation: Negative for rales, rhonchi or wheezes Cardio regular rate, regular rhythm, S1 normal heart sound, S2 normal heart sound, no murmurs, no rub and no gallops GI normal to inspection, nondistended, normoactive bowel sounds, soft to palpation, non-tender and non-distended GI Narrative: Patient is a PEG tube in place Extremity Extremity Narrative: There is mild generalized edema of the patient's lower legs bilaterally, there are stasis dermatitis changes of the lower legs bilaterally. Skin no rashes or lesions noted General Skin Exam: no breakdown Neuro CN's II-XII intact bilaterally Sensorium / Orientation: awake and alert Psych Psych Narrative: Patient does not speak Assessment & Plan Assessment/Plan (1) STEMI (ST elevation myocardial infarction): (2) NSTEMI, initial episode of care: PLAN: Plan 1. STEMI-patient's echocardiogram showed a reduced ejection fraction to 25%, supportive care will continue to be given by cardiology and cardiac medications will be adjusted by cardiology if needed #2 positive blood cultures for Staph aureus-patient is currently on Rocephin, await final cultures #3 paroxysmal [id number] is currently in sinus rhythm, he remains on sotalol and Eliquis #4 Bacteriuria-etiology unclear, patient's urine culture showed no growth. #5 myasthenia gravis-complicates care, management, recovery, and prognosis #6 type 2 diabetes-patient remains on basal insulin and will receive sliding scale insulin per Accu-Chek #7 essential hypertension-patient will remain on his current medications Urinary tract infection was ruled out Total clinical time spent by myself addressing the patient's medical issues, reviewing all of his data, and collaborating with patient's care team: 35 minutes Charges/Coding Visit Charges Inpatient E&M: 75892 Subs Hosp L2
[2024-05-03 18:06] LABS: Bedside Glucose 221 mg/dL (74-106)
[2024-05-04] VITALS (15 sets, daily range): BP systolic 106–143; BP diastolic 78–103; PULSE 79–102; RESP 15–36; TEMP 36.4–36.8; O2SAT 94–100
[2024-05-04] MEDS: 0.9% Saline Lock 10 ML Syringe IV ×7 (00:02→22:48)
[2024-05-04] MEDS: Metoclopramide 10 MG/2 ML Vial IV (00:02)
[2024-05-04] MEDS: Insulin Lispro 100 UNIT/ML INSULN.PEN SC ×4 (00:41→17:30)
[2024-05-04 01:43] LABS: Bedside Glucose 190 mg/dL (74-106)
[2024-05-04] MEDS: HYDROmorphone 0.5 MG/0.5 ML SYRINGE IV ×4 (05:45→22:48)
[2024-05-04 06:11] LABS: Bedside Glucose 162 mg/dL (74-106)
[2024-05-04 06:38] LABS: Absolute Lymphocyte Count 1.39 X10^3/uL (0.83-4.51); Absolute Neutrophil Count 10.3 X10^3/uL (2.0-7.7); Basophil# 0.06 X10^3/uL; Basophil% 0.5 % (0-1); Eosinophil# 0.14 X10^3/uL; Eosinophils% 1.1 % (0-5); Hematocrit 28.9 % (40-54); Lymphocyte # 1.39 X10^3/ul (0.83-4.51); Lymphocyte % 10.7 % (19-41); Mean Corp Hgb Conc 31.1 g/dL (32-36); Mean Corpuscular Hgb 27.4 pg (27.0-32.0); Mean Corpuscular Volume 88.1 fL (80-94); Mean Platelet Vol. 10.2 fl (6.2-12.0); Monocyte# 1.06 X10^3/uL; Monocyte% 8.2 % (0-10); NRBC Flagged by Analyzer 0 % (0-5); Neutrophil # 10.26 X10^3/uL (2.7-7.7); Platelet Count 334 K/mm3 (150-450); RBC Distribution Width CV 16.6 % (11.6-14.6); RBC Distribution Width SD 53.1 fl (35.1-43.9); Red Blood Count 3.28 M/mm3 (4.6-6.2)
[2024-05-04 07:18] LABS: Anion Gap 3 (5-15); BUN 32 mg/dL (7-18); BUN/Creat Ratio 43.4 RATIO (10-20); Calcium,Total 9.4 mg/dL (8.5-10.1); Chloride 109 mmol/L (98-107); Creatinine, Serum 0.74 mg/dL (0.70-1.30); EST Glomerular Filtration Rate 112 mL/min (>60); Est Glom Filt Rate - Afr Amer 136 mL/min (>60); Glucose 157 mg/dL (74-106); Potassium 2.8 mmol/L (3.5-5.1); Sodium Level 144 mmol/L (136-145)
[2024-05-04] MEDS: Potassium Chloride Oral Soln 20 MEQ/15 ML UDC 60 MEQ PO (09:44)
[2024-05-04] MEDS: Metoprolol Tartrate 25 MG Tablet PO ×2 (09:44→22:55)
[2024-05-04] MEDS: Ferrous Sulfate 300 MG/5 ML UDC GT ×2 (09:44→17:32)
[2024-05-04] MEDS: Escitalopram Oxalate 10 MG Tablet 15 MG GT (09:45)
[2024-05-04] MEDS: azaTHIOprine 50 MG Tablet GT ×2 (09:45→22:56)
[2024-05-04] MEDS: Docusate Sodium 100 MG/10 ML UDC PO ×2 (09:45→22:56)
[2024-05-04] MEDS: APIXABAN 2.5 MG TABLET (WCH) PO ×2 (09:45→22:56)
[2024-05-04] MEDS: Pramipexole Di-HCl 0.25 MG Tablet GT (09:46)
[2024-05-04] MEDS: Sotalol Hydrochloride 80 MG Tablet 40 MG GT ×2 (09:46→22:55)
[2024-05-04] MEDS: Losartan Potassium 25 MG Tablet PO (09:46)
[2024-05-04] MEDS: predniSONE 20 MG Tablet GT (09:46)
[2024-05-04] MEDS: Metoclopramide 10 MG/2 ML Vial 5 MG IV (09:47)
[2024-05-04] MEDS: Insulin Glargine-YFGN 100 UNIT/ML Pen 15 UNIT SC ×2 (10:01→22:58)
--- NOTE | 2024-05-04 10:06 | PN.CARD_ITS ---
Subjective Subjective patient seen and evaluated Objective Data Vital Signs: Vital Signs Temp Pulse Resp BP Pulse Ox O2 Del Method O2 Flow Rate 97.5 F L 102 H 25 H 133/94 H 96 Trach Collar 6 05/04/24 09:00 05/04/24 09:44 05/04/24 09:00 05/04/24 09:44 05/04/24 09:00 05/04/24 09:00 05/04/24 09:00 FiO2 30 05/04/24 09:00 Oxygen Flow Rate (L/min) 6 Oxygen Delivery Method Trach Collar Weight: 164 lb 14.492 oz Body Mass Index (BMI) 22.4 Intake & Output: Intake and Output for Last 24 Hours 05/02/24 05/03/24 05/04/24 23:59 23:59 23:59 Intake Total 1935.69 / 1935.69 1279.17 / 1279.17 1320 / 1320 Output Total 1125 / 1675 1425 / 2125 1300 / 1300 Balance 810.69 / 260.69 -145.83 / -845.83 Lab / Micro Data 05/04/24 06:19 05/04/24 06:19 Labs: Laboratory Results - last 24 hr 05/03/24 11:40: POC Glucose 230 H 05/03/24 17:30: POC Glucose 221 H 05/04/24 00:40: POC Glucose 190 H 05/04/24 05:49: POC Glucose 162 H 05/04/24 06:19: WBC 13.0 H, RBC 3.28 L, Hgb 9.0 L, Hct 28.9 L, MCV 88.1, MCH 27.4, MCHC 31.1 L, RDW Std Deviation 53.1 H, RDW Coeff of Mauro 16.6 H, Plt Count 334, MPV 10.2, Immature Gran % (Auto) 0.500, Neut % (Auto) 79.0 H, Lymph % (Auto) 10.7 L, [place] % (Auto) 8.2, Eos % (Auto) 1.1, Baso % (Auto) 0.5, Absolute Neuts (auto) 10.3 H, Absolute Lymphs (auto) 1.39, Nucleated RBC % 0, Sodium 144, Potassium 2.8 L, Chloride 109 H, Carbon Dioxide 32.0, Anion Gap 3 L, BUN 32 H, Creatinine 0.74, Estim Creat Clear Calc 93.50, Est GFR (MDRD) Af Amer 136, Est GFR (MDRD) Non-Af 112, BUN/Creatinine Ratio 43.4 H, Glucose 157 H, Calcium 9.4 Micro: Microbiology 05/01/24 00:52 Blood Culture (Wb) - Anticubital Right Bacteria Detection (PCR) - Final Coag Negative Staph 05/01/24 00:52 Blood Culture (Wb) - Anticubital Right Blood Culture - Final Staphylococcus haemolyticus 05/01/24 01:07 Urine Catheter - Catheter Urine Culture - Final Culture exhibits no growth. 05/01/24 00:50 Blood Culture (Wb) - Right Wrist Blood Culture - Preliminary No growth in 48 hours. Cardiology Labs/Tests 05/04/24 06:19: WBC 13.0 H, RBC 3.28 L, Hgb 9.0 L, Hct 28.9 L, MCV 88.1, MCH 27.4, MCHC 31.1 L, Plt Count 334, MPV 10.2, Immature Gran % (Auto) 0.500, Neut % (Auto) 79.0 H, Lymph % (Auto) 10.7 L, [place] % (Auto) 8.2, Eos % (Auto) 1.1, Baso % (Auto) 0.5, Absolute Neuts (auto) 10.3 H, Nucleated RBC % 0, Sodium 144, P otassium 2.8 L, Chloride 109 H, Carbon Dioxide 32.0, Anion Gap 3 L, BUN 32 H, Creatinine 0.74, Est GFR (MDRD) Af Amer 136, Est GFR (MDRD) Non-Af 112, B UN/Creatinine Ratio 43.4 H, Glucose 157 H, Calcium 9.4 Rhythm: EKG: ECHO: Stress Test: Cardiac Cath: PCI: CT Surgery: Holter monitor: EPS: PPM: CXR: Chest CT Scan: Physical Exam Const no apparent distress HEENT Head and Scalp: atraumatic Eyes EOMs intact bilaterally Neck General: normal visual inspection Chest inspection of chest normal and palpation of chest normal Resp normal respiratory effort Resp Narrative: Tracheostomy Auscultation: clear to auscultation bilaterally Cardio regular rate, regular rhythm, S1 normal heart sound and S2 normal heart sound Jugular Venous Distention: JVD GI normal to inspection, nondistended, normoactive bowel sounds GI Narrative: PEG tube Extremity normal capillary refill and no pedal edema Peripheral Pulses: Yes pulses 2+ throughout and femoral pulses present Skin no rashes or lesions noted Neuro oriented x3 and CN's II-XII intact bilaterally Psych Appearance: grossly normal and appropriate Assessment & Plan Assessment/Plan (1) STEMI (ST elevation myocardial infarction): PLAN: * Patient presented with EKG changes suggestive of the same. However it was determined that medical therapy should be pursued. Echocardiogram done today demonstrates wall motion abnormalities involving the anterior apical and inferoapical wall estimated ejection fraction of 25% * He does not appear to be complaining of any chest pain at this time, and therefore the plan will be to pursue medical therapy with a beta-yue and MONA inhibitor. * Will also continue on the high intensity statin. * Further discussion with the patient's ex significant other who is his only power of criminal defense attorney suggested that he had a stent placed in 2007 and an unknown vessel. He also had an irregular heartbeat and reduced ejection fraction. He says that he knows that the patient does not want any heroic measures such as intubation or prolonged ventilation. * I did discuss with him the issue of pursuing a left heart catheterization and he thinks that at this time we should pursue medical therapy as he is not in any discomfort. We went through this in detail with the risk benefits and alternatives. * At this point in time the plan is to pursue medical therapy. Above also discussed with hospitalist (2) Atrial fibrillation with RVR: PLAN: He apparently has a history of atrial fibrillation with a rapid ventricular response rate. He is on sotalol at this time. We will try and get additional records to see how he does. Depending on the findings further recommendations will be made. The Eliquis will be continued (3) Hypertension: PLAN: He does have a history of hypertension. He is on sotalol at this time and I will recommend that we add metoprolol as well as losartan and titrated as appropriate. PLAN: Plan Will sign off for now
[2024-05-04] MEDS: Jevity 1.5 1,000 ML 55 ML GT (11:54)
[2024-05-04] MEDS: Ondansetron 4 MG/2 ML Vial IV (12:09)
[2024-05-04 12:20] LABS: Bedside Glucose 220 mg/dL (74-106)
[2024-05-04 13:29] LABS: Anion Gap 2 (5-15); BUN 31 mg/dL (7-18); BUN/Creat Ratio 33.6 RATIO (10-20); Calcium,Total 9.3 mg/dL (8.5-10.1); Chloride 113 mmol/L (98-107); Creatinine, Serum 0.92 mg/dL (0.70-1.30); EST Glomerular Filtration Rate 87 mL/min (>60); Est Glom Filt Rate - Afr Amer 105 mL/min (>60); Glucose 231 mg/dL (74-106); Potassium 4.2 mmol/L (3.5-5.1); Sodium Level 146 mmol/L (136-145)
[2024-05-04] MEDS: proCHLORPERazine 10 MG/2 ML Vial 5 MG IV ×2 (15:05→22:48)
--- NOTE | 2024-05-04 15:07 | PN.HOSP_ITS ---
Reason for Visit Reason for Visit: Diagnoses Essential (primary) hypertension (05/01/24) ST elevation (STEMI) myocardial infarction of unspecified site (05/01/24) Non-ST elevation (NSTEMI) myocardial infarction (05/01/24) Acute ischemic heart disease, unspecified (05/01/24) Unspecified atrial fibrillation (05/01/24) Urinary tract infection, site not specified (05/01/24) Other specified abnormal findings of blood chemistry (05/01/24) Subjective Subjective Patient was seen and examined today, patient's urine culture exhibited no growth, one of the patient's blood cultures grew out coag negative staph which was staph hemolyticus, this is methicillin resistant. Patient has been on Rocephin however and his white count is improving. The patient's other blood culture drawn on 05/01/2024 shows no growth. I have repeated the patient's blood culture today. Objective Data Objective Data Vital Signs: Vital Signs Temp Pulse Resp BP Pulse Ox O2 Del Method O2 Flow Rate 97.8 F 80 26 H 123/80 H 94 Trach Collar 6 05/04/24 11:00 05/04/24 11:00 05/04/24 11:00 05/04/24 11:00 05/04/24 11:00 05/04/24 13:44 05/04/24 13:44 FiO2 30 05/04/24 13:44 Oxygen Flow Rate (L/min) 6 Oxygen Delivery Method Trach Collar Weight: 74.8 kg Body Mass Index (BMI) 22.4 Intake & Output: Intake and Output for Last 24 Hours 05/02/24 05/03/24 05/04/24 23:59 23:59 23:59 Intake Total 1935.69 / 1935.69 1279.17 / 1279.17 2661 / 2661 Output Total 1125 / 1675 1425 / 2125 1650 / 1650 Balance 810.69 / 260.69 -145.83 / -845.83 1011 / 1011 Lab / Micro Data 05/04/24 06:19 05/04/24 13:05 Labs: Laboratory Results - last 24 hr 05/03/24 17:30: POC Glucose 221 H 05/04/24 00:40: POC Glucose 190 H 05/04/24 05:49: POC Glucose 162 H 05/04/24 06:19: WBC 13.0 H, RBC 3.28 L, Hgb 9.0 L, Hct 28.9 L, MCV 88.1, MCH 27.4, MCHC 31.1 L, RDW Std Deviation 53.1 H, RDW Coeff of Mauro 16.6 H, Plt Count 334, MPV 10.2, Immature Gran % (Auto) 0.500, Neut % (Auto) 79.0 H, Lymph % (Auto) 10.7 L, [place] % (Auto) 8.2, Eos % (Auto) 1.1, Baso % (Auto) 0.5, Absolute Neuts (auto) 10.3 H, Absolute Lymphs (auto) 1.39, Nucleated RBC % 0, Sodium 144, Potassium 2.8 L, Chloride 109 H, Carbon Dioxide 32.0, Anion Gap 3 L, BUN 32 H, Creatinine 0.74, Estim Creat Clear Calc 93.50, Est GFR (MDRD) Af Amer 136, Est GFR (MDRD) Non-Af 112, BUN/Creatinine Ratio 43.4 H, Glucose 157 H, Calcium 9.4 05/04/24 12:00: POC Glucose 220 H 05/04/24 13:05: Sodium 146 H, Potassium 4.2, Chloride 113 H, Carbon Dioxide 31.0, Anion Gap 2 L, BUN 31 H, Creatinine 0.92, Estim Creat Clear Calc 81.30, Est GFR (MDRD) Af Amer 105, Est GFR (MDRD) Non-Af 87, BUN/Creatinine Ratio 33.6 H, Glucose 231 H, Calcium 9.3 Micro: Microbiology 05/01/24 00:52 Blood Culture (Wb) - Anticubital Right Bacteria Detection (PCR) - Final Coag Negative Staph 05/01/24 00:52 Blood Culture (Wb) - Anticubital Right Blood Culture - Final Staphylococcus haemolyticus 05/01/24 01:07 Urine Catheter - Catheter Urine Culture - Final Culture exhibits no growth. 05/01/24 00:50 Blood Culture (Wb) - Right Wrist Blood Culture - Preliminary No growth in 48 hours. Physical Exam Narrative alert and no apparent distress Constitutional Narrative: Patient is nonverbal General Appearance: well kempt and well developed Orientation / Consciousness: awake HEENT normocephalic, head/scalp atraumatic and moist oral mucous membranes HEENT Narrative: Patient has a tracheostomy Head and Scalp: normocephalic Eyes PERRL, EOMs intact bilaterally and conjunctivae normal Neck no JVD Neck Narrative: Patient has a tracheostomy Resp normal respiratory effort and clear to auscultation bilaterally Resp Narrative: Patient has shallow respirations which are rapid, he does not appear to be in any distress however Auscultation: Negative for rales, rhonchi or wheezes Cardio regular rate, regular rhythm, S1 normal heart sound, S2 normal heart sound, no murmurs, no rub and no gallops GI normal to inspection, nondistended, normoactive bowel sounds, soft to palpation, non-tender and non-distended GI Narrative: Patient is a PEG tube in place Extremity Extremity Narrative: There is mild generalized edema of the patient's lower legs bilaterally, there are stasis dermatitis changes of the lower legs bilaterally. Skin no rashes or lesions noted General Skin Exam: no breakdown Neuro CN's II-XII intact bilaterally Sensorium / Orientation: awake and alert Psych Psych Narrative: Patient does not speak Assessment & Plan Assessment/Plan (1) STEMI (ST elevation myocardial infarction): (2) NSTEMI, initial episode of care: PLAN: Plan 1. STEMI-patient's echocardiogram showed a reduced ejection fraction to 25%, supportive care will continue to be given by cardiology and cardiac medications will be adjusted by cardiology if needed #2 positive blood cultures for Staph hemolyticus (oxacillin resistant)-patient is currently on Rocephin but his white count is improving, repeat blood culture #3 paroxysmal [id number] is currently in sinus rhythm, he remains on sotalol and Eliquis #4 Bacteriuria-etiology unclear, patient's urine culture showed no growth. #5 myasthenia gravis-complicates care, management, recovery, and prognosis #6 type 2 diabetes-patient remains on basal insulin and will receive sliding scale insulin per Accu-Chek #7 essential hypertension-patient will remain on his current medications Urinary tract infection was ruled out Total clinical time spent by myself addressing the patient's medical issues, reviewing all of his data, and collaborating with patient's care team: 35 minutes Charges/Coding Visit Charges Inpatient E&M: 04446 Subs Hosp L2
[2024-05-04 15:10] LABS: Magnesium 1.7 mg/dL (1.6-2.6)
[2024-05-04 18:21] LABS: Bedside Glucose 229 mg/dL (74-106)
[2024-05-04] MEDS: Ceftriaxone 1 GM/50 ML BAG IV (22:48)
[2024-05-04] MEDS: Pramipexole Di-HCl 0.5 MG Tablet GT (22:55)
[2024-05-04 23:35] LABS: Bedside Glucose 131 mg/dL (74-106)
[2024-05-05] VITALS (8 sets, daily range): BP systolic 123–156; BP diastolic 77–97; PULSE 86–101; RESP 24–33; TEMP 36.6–37.3; O2SAT 96–98; BMI 22.3
[2024-05-05] MEDS: Ondansetron 4 MG/2 ML Vial IV (01:31)
[2024-05-05] MEDS: HYDROmorphone 0.5 MG/0.5 ML SYRINGE IV ×2 (03:54→09:47)
[2024-05-05] MEDS: Insulin Lispro 100 UNIT/ML INSULN.PEN SC ×4 (06:29→23:55)
[2024-05-05 06:52] LABS: Bedside Glucose 205 mg/dL (74-106)
[2024-05-05] MEDS: Ferrous Sulfate 300 MG/5 ML UDC GT ×2 (09:17→17:31)
[2024-05-05] MEDS: predniSONE 20 MG Tablet GT (09:17)
[2024-05-05] MEDS: Sotalol Hydrochloride 80 MG Tablet 40 MG GT ×2 (09:17→21:35)
[2024-05-05] MEDS: Docusate Sodium 100 MG/10 ML UDC PO ×2 (09:18→21:33)
[2024-05-05] MEDS: APIXABAN 2.5 MG TABLET (WCH) PO ×2 (09:18→21:33)
[2024-05-05] MEDS: Losartan Potassium 25 MG Tablet PO (09:18)
[2024-05-05] MEDS: Insulin Glargine-YFGN 100 UNIT/ML Pen 15 UNIT SC ×2 (09:19→21:32)
[2024-05-05] MEDS: azaTHIOprine 50 MG Tablet GT ×2 (09:19→21:33)
[2024-05-05] MEDS: Escitalopram Oxalate 10 MG Tablet 15 MG GT (09:20)
[2024-05-05] MEDS: Metoprolol Tartrate 25 MG Tablet PO ×2 (09:21→21:34)
[2024-05-05] MEDS: Jevity 1.5 1,000 ML 55 ML GT (09:29)
[2024-05-05] MEDS: 0.9% Saline Lock 10 ML Syringe IV (09:47)
--- NOTE | 2024-05-05 10:31 | CASEMGMT ---
Discharge Planning Updates sent to with note that pt may return today/tomorrow. Danielle Bahena DC Planning Asst.
--- NOTE | 2024-05-05 10:41 | NURSING ---
Pain management came to check on patient's implanted pain pump. It's a medtronic. Pain management stated that pump is empty. This patient sees [facility] for pain management and we can not fill pump. Patient will need to follow up with [facility] Pain management after discharge.
[2024-05-05] MEDS: Pramipexole Di-HCl 0.25 MG Tablet GT (11:19)
[2024-05-05 12:52] LABS: Bedside Glucose 210 mg/dL (74-106)
--- NOTE | 2024-05-05 14:08 | CASEMGMT ---
Addendum entered by Heather Pedro 05/05/24 14:49: Social Work Pt [facility]. [facility] under skilled level of care. RAFY Peters Original Note: Social Work Pt will likely be ready for discharge tomorrow back to [facility], as per physician. SW sent a message via letting [facility] know, and also inquired as to pt's level of care at [facility]. RAFY Peters
[2024-05-05 17:58] LABS: Bedside Glucose 188 mg/dL (74-106)
[2024-05-05] MEDS: Pramipexole Di-HCl 0.5 MG Tablet GT (21:35)
[2024-05-05 22:12] LABS: Bedside Glucose 153 mg/dL (74-106)
[2024-05-06] VITALS (7 sets, daily range): BP systolic 110–141; BP diastolic 76–107; PULSE 87–101; RESP 25–35; TEMP 36.6–36.7; O2SAT 28–97; BMI 23.6
[2024-05-06] MEDS: 0.9% Saline Lock 10 ML Syringe IV ×3 (00:05→09:34)
[2024-05-06] MEDS: HYDROmorphone 0.5 MG/0.5 ML SYRINGE IV ×2 (00:05→09:30)
[2024-05-06 00:18] LABS: Bedside Glucose 157 mg/dL (74-106)
[2024-05-06] MEDS: Ondansetron 4 MG/2 ML Vial IV (03:46)
[2024-05-06] MEDS: Jevity 1.5 1,000 ML 55 ML GT (04:07)
[2024-05-06] MEDS: Insulin Lispro 100 UNIT/ML INSULN.PEN SC ×2 (06:29→11:19)
[2024-05-06 06:55] LABS: Bedside Glucose 183 mg/dL (74-106)
[2024-05-06] MEDS: Ferrous Sulfate 300 MG/5 ML UDC GT (09:03)
[2024-05-06] MEDS: predniSONE 20 MG Tablet GT (09:03)
[2024-05-06] MEDS: Sotalol Hydrochloride 80 MG Tablet 40 MG GT (09:04)
[2024-05-06] MEDS: Docusate Sodium 100 MG/10 ML UDC PO (09:04)
[2024-05-06] MEDS: Losartan Potassium 25 MG Tablet PO (09:05)
[2024-05-06] MEDS: azaTHIOprine 50 MG Tablet GT (09:05)
[2024-05-06] MEDS: Insulin Glargine-YFGN 100 UNIT/ML Pen 15 UNIT SC (09:05)
[2024-05-06] MEDS: Escitalopram Oxalate 10 MG Tablet 15 MG GT (09:06)
[2024-05-06] MEDS: Metoprolol Tartrate 25 MG Tablet PO (09:06)
[2024-05-06] MEDS: Pramipexole Di-HCl 0.25 MG Tablet GT (09:06)
[2024-05-06] MEDS: APIXABAN 2.5 MG TABLET (WCH) PO (10:05)
[2024-05-06 11:08] LABS: Absolute Lymphocyte Count 1.25 X10^3/uL (0.83-4.51); Absolute Neutrophil Count 11.4 X10^3/uL (2.0-7.7); Basophil# 0.07 X10^3/uL; Basophil% 0.5 % (0-1); Eosinophil# 0.19 X10^3/uL; Eosinophils% 1.4 % (0-5); Hematocrit 31.2 % (40-54); Hemoglobin 9.4 g/dL (13.0-16.5); Lymphocyte # 1.25 X10^3/ul (0.83-4.51); Mean Corp Hgb Conc 30.1 g/dL (32-36); Mean Corpuscular Hgb 27.6 pg (27.0-32.0); Mean Corpuscular Volume 91.5 fL (80-94); Mean Platelet Vol. 10.3 fl (6.2-12.0); Monocyte# 0.81 X10^3/uL; Monocyte% 5.9 % (0-10); NRBC Flagged by Analyzer 0 % (0-5); Neutrophil # 11.38 X10^3/uL (2.7-7.7); Neutrophil % 82.2 % (47-70); Platelet Count 313 K/mm3 (150-450); RBC Distribution Width CV 17.3 % (11.6-14.6); Red Blood Count 3.41 M/mm3 (4.6-6.2); White Blood Count 13.8 K/mm3 (4.4-11.0)
[2024-05-06 11:39] LABS: Bedside Glucose 223 mg/dL (74-106)
--- NOTE | 2024-05-06 12:45 | PCM.PN.HOSP ---
Reason for Visit Reason for Visit: Diagnoses Essential (primary) hypertension (05/01/24) ST elevation (STEMI) myocardial infarction of unspecified site (05/01/24) Non-ST elevation (NSTEMI) myocardial infarction (05/01/24) Acute ischemic heart disease, unspecified (05/01/24) Unspecified atrial fibrillation (05/01/24) Urinary tract infection, site not specified (05/01/24) Other specified abnormal findings of blood chemistry (05/01/24) Subjective Subjective The date of this entry should read 05/05/2024: Patient was seen and examined today, he intermittently cries out help me but does not answer questions or carry on a conversation. I talked with pain management today, they checked his pain pump and detected that its either turned off or reset to a low rate due to lack of narcotics in the reservoir. Pain management is trying to get a hold of his pain management physician but I doubt they will be able to do anything since he is in the hospital. It appears that the patient's positive blood culture is a contaminant as it was only in 1 bottle. Objective Data Objective Data Vital Signs: Vital Signs Temp Pulse Resp BP Pulse Ox O2 Del Method O2 Flow Rate 97.8 F 101 H 25 H 141/97 H 95 Trach Collar 6 05/06/24 09:25 05/06/24 09:25 05/06/24 09:40 05/06/24 09:25 05/06/24 09:25 05/06/24 09:40 05/06/24 03:50 FiO2 28 05/06/24 09:40 Oxygen Flow Rate (L/min) 6 Oxygen Delivery Method Trach Collar Weight: 79.2 kg Body Mass Index (BMI) 23.6 Intake & Output: Intake and Output for Last 24 Hours 05/04/24 05/05/24 05/06/24 23:59 23:59 23:59 Intake Total 2881 / 2881 1735 / 1735 1484 / 1484 Output Total 1925 / 2225 1895 / 1895 Balance 956 / 656 -160 / -160 1484 / 1484 Lab / Micro Data 05/06/24 10:50 05/04/24 13:05 Labs: Laboratory Results - last 24 hr 05/05/24 12:32: POC Glucose 210 H 05/05/24 17:29: POC Glucose 188 H 05/05/24 21:31: POC Glucose 153 H 05/05/24 23:49: POC Glucose 157 H 05/06/24 06:28: POC Glucose 183 H 05/06/24 10:50: WBC 13.8 H, RBC 3.41 L, Hgb 9.4 L, Hct 31.2 L, MCV 91.5, MCH 27.6, MCHC 30.1 L, RDW Std Deviation 57.0 H, RDW Coeff of Mauro 17.3 H, Plt Count 313, MPV 10.3, Immature Gran % (Auto) 1.000 H, Neut % (Auto) 82.2 H, Lymph % (Auto) 9.0 L, [place] % (Auto) 5.9, Eos % (Auto) 1.4, Baso % (Auto) 0.5, Absolute Neuts (auto) 11.4 H, Absolute Lymphs (auto) 1.25, Nucleated RBC % 0 05/06/24 11:17: POC Glucose 223 H Micro: Microbiology 05/01/24 00:52 Blood Culture (Wb) - Anticubital Right Bacteria Detection (PCR) - Final Coag Negative Staph 05/01/24 00:52 Blood Culture (Wb) - Anticubital Right Blood Culture - Final Staphylococcus haemolyticus 05/01/24 00:50 Blood Culture (Wb) - Right Wrist Blood Culture - Final No growth in 5 days. 05/01/24 01:07 Urine Catheter - Catheter Urine Culture - Final Culture exhibits no growth. Physical Exam Narrative alert and no apparent distress Constitutional Narrative: Patient does not carry on a conversation, he occasionally yells out help me General Appearance: well kempt and well developed Orientation / Consciousness: awake HEENT normocephalic, head/scalp atraumatic and moist oral mucous membranes HEENT Narrative: Patient has a tracheostomy Head and Scalp: normocephalic Eyes PERRL, EOMs intact bilaterally and conjunctivae normal Neck no JVD Neck Narrative: Patient has a tracheostomy Resp normal respiratory effort and clear to auscultation bilaterally Resp Narrative: Patient has shallow respirations which are rapid, he does not appear to be in any distress however Auscultation: Negative for rales, rhonchi or wheezes Cardio regular rate, regular rhythm, S1 normal heart sound, S2 normal heart sound, no murmurs, no rub and no gallops GI normal to inspection, nondistended, normoactive bowel sounds, soft to palpation, non-tender and non-distended GI Narrative: Patient is a PEG tube in place Extremity Extremity Narrative: There is mild generalized edema of the patient's lower legs bilaterally, there are stasis dermatitis changes of the lower legs bilaterally. Skin no rashes or lesions noted General Skin Exam: no breakdown Neuro CN's II-XII intact bilaterally Sensorium / Orientation: awake and alert Psych Psych Narrative: Patient does not speak Assessment & Plan Assessment/Plan (1) STEMI (ST elevation myocardial infarction): (2) NSTEMI, initial episode of care: PLAN: Plan 1. STEMI-patient's echocardiogram showed a reduced ejection fraction to 25%, supportive care will continue to be given by cardiology and cardiac medications will be adjusted by cardiology if needed #2 positive blood culture for Staph hemolyticus (oxacillin resistant)-this is most likely a contaminant, I stopped his antibiotics, repeat blood culture was obtained on 05/04/2024 and is pending at this time #3 paroxysmal [id number] is currently in sinus rhythm, he remains on sotalol and Eliquis #4 Bacteriuria-etiology unclear, patient's urine culture showed no growth. #5 myasthenia gravis-complicates care, management, recovery, and prognosis #6 type 2 diabetes-patient remains on basal insulin and will receive sliding scale insulin per Accu-Chek #7 essential hypertension-patient will remain on his current medications Urinary tract infection was ruled out Total clinical time spent by myself addressing the patient's medical issues, reviewing all of his data, and collaborating with patient's care team: 35 minutes Charges/Coding Visit Charges Inpatient E&M: 60764 Subs Hosp L2
--- NOTE | 2024-05-06 13:09 | PCM.TXEXTCAR ---
Diet Diet Order/Speech Therapy: 05/02/24 14:46 Diet: Nothing Per Oral Routine Orders/Code Status Code Status: DNRCC-A (With intubation) DC O2, CPAP, BIPAP needs PSN CPAP & BiPAP: BiPAP & CPAP Settings per PSN Fraction of Inspired Oxygen ( 05/06/24 13:03 FIO2) Home O2 Discharge instructions: Yes Type of respiratory needs?: Oxygen Oxygen frequency: Continuous Continuous oxygen liters per minute: 6 L Wound(s) left buttock: Wound Type: Pressure Injury bilateral buttock: Wound Type: shearing Dressing Change: foam dressing Therapies Physical Therapy: Eval and Treat Occupational Therapy: Eval and Treat Speech Therapy: Eval and Treat Problem/Diagnosis (1) STEMI (ST elevation myocardial infarction): Status: Acute Code(s): I21.3 - ST elevation (STEMI) myocardial infarction of unspecified site (2) NSTEMI, initial episode of care: Status: Acute Code(s): I21.4 - Non-ST elevation (NSTEMI) myocardial infarction (3) Chronic pain: Status: Chronic Code(s): G89.29 - Other chronic pain Plan 1. STEMI-patient's echocardiogram showed a reduced ejection fraction to 25%, supportive care will continue to be given by cardiology and cardiac medications will be adjusted by cardiology if needed #2 positive blood culture for Staph hemolyticus (oxacillin resistant)-this is most likely a contaminant, I stopped his antibiotics, repeat blood culture was obtained on 05/04/2024 and is pending at this time #3 paroxysmal [id number] is currently in sinus rhythm, he remains on sotalol and Eliquis #4 Bacteriuria-etiology unclear, patient's urine culture showed no growth. #5 myasthenia gravis-complicates care, management, recovery, and prognosis #6 type 2 diabetes-patient remains on basal insulin and will receive sliding scale insulin per Accu-Chek #7 essential hypertension-patient will remain on his current medications #8 chronic pain syndrome-patient's pain pump will need refilled, I will talk to the nursing facility concerning this before the patient goes back Urinary tract infection was ruled out Total clinical time spent by myself addressing the patient's medical issues, reviewing all of his data, and collaborating with patient's care team: 35 minutes Allergies/Procedures Done in Hospital Allergies amlodipine Allergy (Unknown, Verified 12/21/24 23:56) PT UNABLE TO RESPOND-NEEDS F/U amoxicillin Allergy (Unknown, Verified 04/30/24 23:56) PT UNABLE TO RESPOND-NEEDS F/U atorvastatin Allergy (Unknown, Verified 04/30/24 23:56) PT UNABLE TO RESPOND-NEEDS F/U cyclobenzaprine Allergy (Unknown, Verified 04/30/24 23:56) PT UNABLE TO RESPOND-NEEDS F/U diclofenac Allergy (Unknown, Verified 04/30/24 23:56) PT UNABLE TO RESPOND-NEEDS F/U diltiazem Allergy (Unknown, Verified 04/30/24 23:56) PT UNABLE TO RESPOND-NEEDS F/U esomeprazole Allergy (Unknown, Verified 04/30/24 23:56) PT UNABLE TO RESPOND-NEEDS F/U famotidine Allergy (Unknown, Verified 04/30/24 23:56) PT UNABLE TO RESPOND-NEEDS F/U gabapentin Allergy (Unknown, Verified 04/30/24 23:56) PT UNABLE TO RESPOND-NEEDS F/U haloperidol Allergy (Unknown, Verified 04/30/24 23:56) PT UNABLE TO RESPOND-NEEDS F/U immune globulin,alpha (IgA) average 46 mcg/mL Allergy (Unknown, Verified 04/30/24 23:56) PT UNABLE TO RESPOND-NEEDS F/U ketamine Allergy (Unknown, Verified 04/30/24 23:56) PT UNABLE TO RESPOND-NEEDS F/U ketorolac Allergy (Unknown, Verified 04/30/24 23:56) PT UNABLE TO RESPOND-NEEDS F/U lansoprazole Allergy (Unknown, Verified 04/30/24 23:56) PT UNABLE TO RESPOND-NEEDS F/U morphine Allergy (Unknown, Verified 04/30/24 23:56) PT UNABLE TO RESPOND-NEEDS F/U nifedipine Allergy (Unknown, Verified 04/30/24 23:56) PT UNABLE TO RESPOND-NEEDS F/U pantoprazole Allergy (Unknown, Verified 04/30/24 23:56) PT UNABLE TO RESPOND-NEEDS F/U prochlorperazine Allergy (Unknown, Verified 04/30/24 23:56) PT UNABLE TO RESPOND-NEEDS F/U promethazine Allergy (Unknown, Verified 04/30/24 23:56) PT UNABLE TO RESPOND-NEEDS F/U zolpidem Allergy (Unknown, Verified 04/30/24 23:56) PT UNABLE TO RESPOND-NEEDS F/U Procedures: 2-D Echocardiogram Type of Care/Length of Stay Estimated LOS: Convalescent Care Less Than 30 days Type of Care Needed: Skilled Rehab Potential: Fair Prognosis: Fair Additional Orders/Day of Discharge H&P will serve as current which was dated: 05/01/24 Day of Discharge: 05/06/24 Dietary and Speech Recommendations Dietitian Recommendations/Changes: Continue Jevity 1.5 at 55mL/hr with 150ml water flushes every 4 hours providing 1980kcal, 84g protein and 1903mL free water per day. Will continue to follow, monitor administration and tolerance of enteral provision, and adjust recommendations as needed. Reviewed and approved by Delmi Mariee RDN, [place]. Discharge Plan Admission Admit Date/Time: 05/01/24 02:13 Primary Reason for Your Visit: STEMI Attending Provider: Mike Bryant Primary Care Provider: Monica Albarado Consulting Providers: Julianna Black; Ace Agosto; Tianna Tovar; Valentín Cai Instructions Additional Instructions / Restrictions: The patient's pain medications through his G-tube will need to be adjusted when his pain pump is refilled Discharge Orders/Prescriptions Prescriptions: New losartan 25 mg Tablet 25 mg feeding tube DAILY Qty: 0 0RF metoprolol tartrate 25 mg Tablet 25 mg feeding tube BID Qty: 0 0RF acetaminophen 650 mg/20.3 mL Solution 650 mg G-tube Q4H PRN PRN (Reason: Pain 1-10 Or Fever) Qty: 0 0RF morphine concentrate 20 mg/mL syringe 20 mg feeding tube Q6H PRN (Reason: pain) 5 Days Qty: 20 0RF Continued Isosource 1.5 Trever 0.07 gram-1.5 kcal/mL liquid 250 ml feeding tube Q4H apixaban 5 mg tablet 5 mg feeding tube BID atorvastatin 40 mg tablet 40 mg feeding tube QHS azathioprine 50 mg tablet 50 mg feeding tube BID sulfamethoxazole-trimethoprim [Bactrim DS] 800-160 mg tablet 1 tab feeding tube MOWEFR diclofenac sodium [Arthritis Pain (diclofenac)] 1 % gel topical BID docusate sodium [Docuprene] 100 mg tablet 100 mg PO BID Patient Comments: PEG TUbe Drizalma Sprinkle 60 mg capsule, delayed rel sprinkle 60 mg feeding tube QHS ferrous sulfate 300 mg (60 mg iron)/5 mL liquid 300 mg feeding tube BID insulin lispro [Humalog KwikPen Insulin] 100 unit/mL insulin pen See Protocol subcut Q6H Protocol: 6. Sliding Scale Insulin Custom Condition: mg/dl range Dose/Route: Number of Units Condition: 150-200 Dose/Route: 2 Condition: 201-250 Dose/Route: 4 Condition: 251-300 Dose/Route: 6 Condition: 301-350 Dose/Route: 8 Condition: 351-400 Dose/Route: 10 Condition: 401-450 Dose/Route: 12 Protocol Text: Custom Sliding Scale insulin glargine [Lantus Solostar U-100 Insulin] 100 unit/mL (3 mL) insulin pen 15 unit subcut BID memantine 5 mg tablet 5 mg feeding tube BID pramipexole 0.25 mg tablet 0.25 mg feeding tube DAILY pramipexole 0.5 mg tablet 0.5 mg feeding tube QHS prednisone 20 mg tablet 20 mg feeding tube DAILY Rx Instructions: days 11-21 of therapy pregabalin [Lyrica] 100 mg capsule 100 mg feeding tube TID pyridostigmine bromide 60 mg tablet 60 mg feeding tube QHS pyridostigmine bromide 60 mg tablet 120 mg feeding tube ACHS sennosides-docusate sodium [Stool Softener-Laxative] 8.6-50 mg tablet 2 tab-cap PO DAILY Patient Comments: PEG-TUBE sotalol [Betapace] 80 mg tablet 40 mg feeding tube BID Discontinued escitalopram oxalate 5 mg tablet 15 mg feeding tube DAILY fluticasone propionate [24 Hour Allergy Relief] 50 mcg/actuation spray,suspension 2 spray intranasal BID Rx Instructions: administer into each nostril furosemide 20 mg tablet 20 mg feeding tube DAILY dextromethorphan-guaifenesin 10-100 mg/5 mL syrup 10 ml feeding tube Q6H Referrals / Follow Up: Monica Albarado MD [Primary Care Provider] - Disposition Disposition (needs filled in before D/C Order can be placed): [facility]
--- NOTE | 2024-05-06 13:48 | DS.PCM_ITS ---
Providers Date of Admission: 05/01/24 Date of Discharge: 05/06/24 Primary Care Physician: Dr. Monica Albarado MD Consultations 05/01/24 03:57 Consult: Cardiology Routine Consulting Provider: Julianna Black Reason for Consult: NSTEMI EMERGENT Consult: No MD Notified: Yes Date Notified: 05/01/24 Time Notified: 02:18 Method of Notification: ED Physician Initiated Consult: Onc/Wound/embroidery machine operator Routine Comment: Reason For Visit: NSTEMI Diagnosis Discharge Diagnosis (1) STEMI (ST elevation myocardial infarction): Status: Acute Code(s): I21.3 - ST elevation (STEMI) myocardial infarction of unspecified site (2) NSTEMI, initial episode of care: Status: Acute Code(s): I21.4 - Non-ST elevation (NSTEMI) myocardial infarction (3) Chronic pain: Status: Chronic Code(s): G89.29 - Other chronic pain Plan 1. STEMI-patient's echocardiogram showed a reduced ejection fraction to 25%, supportive care will continue to be given by cardiology and cardiac medications will be adjusted by cardiology if needed #2 positive blood culture for Staph hemolyticus (oxacillin resistant)-this is a contaminant #3 paroxysmal [id number] is currently in sinus rhythm, he remains on sotalol and Eliquis #4 Bacteriuria-etiology unclear, patient's urine culture showed no growth. #5 myasthenia gravis-complicates care, management, recovery, and prognosis #6 type 2 diabetes-patient remains on basal insulin and will receive sliding scale insulin per Accu-Chek #7 essential hypertension-patient will remain on his current medications #8 chronic pain syndrome-patient's pain pump will need refilled, I will talk to the nursing facility concerning this before the patient goes back #9 chronic tracheostomy Urinary tract infection was ruled out Total clinical time spent by myself addressing the patient's medical issues, reviewing all of his data, and collaborating with patient's care team: 35 minutes Medications at Discharge Home Medications apixaban 5 mg tablet 5 mg feeding tube BID blood thinner 04/30/24 atorvastatin 40 mg tablet 40 mg feeding tube QHS cholesterol 04/30/24 azathioprine 50 mg tablet 50 mg feeding tube BID 04/30/24 lactose-reduced food-fiber 0.07 gram-1.5 kcal/mL liquid for tube feed (Isosource 1.5 Trever) 250 ml feeding tube Q4H 04/30/24 diclofenac sodium 1 % topical gel (Arthritis Pain (diclofenac)) topical BID 05/01/24 docusate sodium 100 mg tablet (Docuprene) 100 mg PO BID stool softener 05/01/24 duloxetine 60 mg capsule,delayed release sprinkle (Drizalma Sprinkle) 60 mg feeding tube QHS anxiety/depression 05/01/24 ferrous sulfate 300 mg (60 mg iron)/5 mL oral liquid 300 mg feeding tube BID supplement 05/01/24 insulin glargine 100 unit/mL (3 mL) subcutaneous pen (Lantus Solostar U-100 Insulin) 15 unit subcut BID DM 05/01/24 insulin lispro 100 unit/mL subcutaneous pen (Humalog KwikPen (U-100) Insulin) See Protocol subcut Q6H DM 05/01/24 memantine 5 mg tablet 5 mg feeding tube BID memory 05/01/24 pramipexole 0.25 mg tablet 0.25 mg feeding tube DAILY 05/01/24 pramipexole 0.5 mg tablet 0.5 mg feeding tube QHS 05/01/24 prednisone 20 mg tablet 20 mg feeding tube DAILY steroid 05/01/24 pregabalin 100 mg capsule (Lyrica) 100 mg feeding tube TID 05/01/24 pyridostigmine bromide 60 mg tablet 60 mg feeding tube QHS 05/01/24 pyridostigmine bromide 60 mg tablet 120 mg feeding tube ACHS 05/01/24 sennosides 8.6 mg-docusate sodium 50 mg tablet (Stool Softener-Laxative) 2 tab- cap PO DAILY stool softener 05/01/24 sotalol 80 mg tablet (Betapace) 40 mg feeding tube BID heart 05/01/24 sulfamethoxazole 800 mg-trimethoprim 160 mg tablet (Bactrim DS) 1 tab feeding tube MOWEFR 05/01/24 acetaminophen 650 mg/20.3 mL oral solution 650 mg (20.3 mL) G-tube Q4H PRN PRN Pain 1-10 Or Fever #0 mL 05/06/24 losartan 25 mg tablet 25 mg feeding tube DAILY #0 tabs 05/06/24 metoprolol tartrate 25 mg tablet 25 mg feeding tube BID #0 tabs 05/06/24 morphine concentrate 20 mg/mL oral syringe (FOR ORAL USE ONLY) 20 mg feeding tube Q6H PRN pain 5 days #20 mL 05/06/24 Hospital Course Operations None Procedures None Summary of Care Provided Minutes Spent on Discharge: 32 Hospital Course: This 68-year-old white male was seen in the emergency room at [facility] with complaints of chest pain. Patient was at a [place] [facility] facility undergoing inpatient skilled services. Patient has a history of myasthenia gravis and currently has a permanent tracheostomy and PEG tube. Workup in the emergency room included a troponin which was elevated to 2300, EKGs indicated the patient was having a STEMI but due to his complicated medical issues, cardiology did not feel he needed to undergo a cardiac catheterization. It was decided the patient will be treated medically. Patient was admitted to PCU, echocardiogram was obtained which showed a reduced ejection fraction of 25%, cardiology adjusted the patient's cardiac medications. Patient had a positive blood culture but this was felt to be contaminant. On 05/06/2024, patient was seen and examined:alert and no apparent distress Constitutional Narrative: Patient is nonverbal General Appearance: well kempt and well developed Orientation / Consciousness: awake HEENT normocephalic, head/scalp atraumatic and moist oral mucous membranes HEENT Narrative: Patient has a tracheostomy Head and Scalp: normocephalic Eyes PERRL, EOMs intact bilaterally and conjunctivae normal Neck no JVD Neck Narrative: Patient has a tracheostomy Resp normal respiratory effort and clear to auscultation bilaterally Resp Narrative: Patient has shallow respirations which are rapid, he does not appear to be in any distress however Auscultation: Negative for rales, rhonchi or wheezes Cardio regular rate, regular rhythm, S1 normal heart sound, S2 normal heart sound, no murmurs, no rub and no gallops GI normal to inspection, nondistended, normoactive bowel sounds, soft to palpation, non-tender and non-distended GI Narrative: Patient is a PEG tube in place Extremity Extremity Narrative: There is mild generalized edema of the patient's lower legs bilaterally, there are stasis dermatitis changes of the lower legs bilaterally. Skin no rashes or lesions noted General Skin Exam: no breakdown Neuro CN's II-XII intact bilaterally Sensorium / Orientation: awake and alert Psych Psych Narrative: Patient does not speak On 05/06/2024, patient was felt to be stable for transfer to [facility] for further inpatient skilled services. As a further note, patient's pain pump was noted to be low or empty and I notified the [place] [facility] facility that the patient needed an appointment to have his pain pump refilled. I sent the patient on programmed pain medication until this could be arranged. Weight / BMI Weight Weight: 79.2 kg Body Mass Index (BMI) 23.6 ABG / Lab / Microbiology Data 05/06/24 10:50 05/04/24 13:05 Laboratory: Laboratory Results - last 24 hr 05/05/24 17:29: POC Glucose 188 H 05/05/24 21:31: POC Glucose 153 H 05/05/24 23:49: POC Glucose 157 H 05/06/24 06:28: POC Glucose 183 H 05/06/24 10:50: WBC 13.8 H, RBC 3.41 L, Hgb 9.4 L, Hct 31.2 L, MCV 91.5, MCH 27.6, MCHC 30.1 L, RDW Std Deviation 57.0 H, RDW Coeff of Mauro 17.3 H, Plt Count 313, MPV 10.3, Immature Gran % (Auto) 1.000 H, Neut % (Auto) 82.2 H, Lymph % (Auto) 9.0 L, Coryell % (Auto) 5.9, Eos % (Auto) 1.4, Baso % (Auto) 0.5, Absolute Neuts (auto) 11.4 H, Absolute Lymphs (auto) 1.25, Nucleated RBC % 0 05/06/24 11:17: POC Glucose 223 H Microbiology: Microbiology 05/04/24 13:45 Blood Culture (Wb) - Right Wrist Blood Culture - Final No growth in 5 days. 05/01/24 00:52 Blood Culture (Wb) - Anticubital Right Bacteria Detection (PCR) - Final Coag Negative Staph 05/01/24 00:52 Blood Culture (Wb) - Anticubital Right Blood Culture - Final Staphylococcus haemolyticus 05/01/24 00:50 Blood Culture (Wb) - Right Wrist Blood Culture - Final No growth in 5 days. 05/01/24 01:07 Urine Catheter - Catheter Urine Culture - Final Culture exhibits no growth. D/C Instructions DC O2, CPAP, BIPAP Needs PSN CPAP & BiPAP: BiPAP & CPAP Settings per PSN Fraction of Inspired Oxygen ( 28 05/06/24 15:18 FIO2) Home O2 Discharge instructions: Yes Type of respiratory needs?: Oxygen Oxygen frequency: Continuous Continuous oxygen liters per minute: 6 L DC home with Oxygen: Yes Home O2 MD Review: I have reviewed the oxygen testing, and the patient qualifies for home oxygen equipment and portability. The patient is mobile in the home and the community. Meaningful Use Info Meaningful Use Meaningful Use Diagnoses (Choose all that apply): AMI AMI/Post PCI/Angioplasty Aspirin given w/in 24hrs of arrival?: No Reason no aspirin w/in 24hrs of arrival?: Prearrival apixaban ASA at discharge?: No Reason ASA not ordered:: Drug Interaction (Patient was discharged on apixaban) Antiplatelet Therapy at Discharge:: No Reason Antiplatelet Therapy not ordered:: Discharged on apixaban Statins at discharge?: Yes Jose Maria/ARB at discharge?: Yes Beta Brina at discharge?: Yes Done w/ Acute GA measure.: Yes Documented LVEF (%): 25 Ischemic Stroke Statin Dosing Therapy Reference: STATIN DOSE THERAPY REFERENCE: * Patients > 75 years receive moderate or high dose statin therapy. * Patients 75 years or YOUNGER should receive HIGH intensity statin dose unless contraindicated. You will be required to document reason for non-treatment if statin daily dose does not meet guidelines. HIGH DOSE STATIN THERAPY DAILY Atorvastatin > than or = to 40 mg Rosuvastatin > than or = to 20 mg Amlodipine + Atorvastatin > than or = to 2.5/40 mg Ezetimibe + Simvastatin 10/80 mg Simvastatin 80mg Discharge Plan Admission Admit Date/Time: 05/01/24 02:13 Primary Reason for Your Visit: STEMI Attending Provider: Mike Bryant Primary Care Provider: Monica Albarado Consulting Providers: Julianna Black; Ace Agosto Nana Yaa; Valentín Cai Instructions Additional Instructions / Restrictions: The patient's pain medications through his G-tube will need to be adjusted when his pain pump is refilled Discharge Orders/Prescriptions Prescriptions: New losartan 25 mg Tablet 25 mg feeding tube DAILY Qty: 0 0RF metoprolol tartrate 25 mg Tablet 25 mg feeding tube BID Qty: 0 0RF acetaminophen 650 mg/20.3 mL Solution 650 mg G-tube Q4H PRN PRN (Reason: Pain 1-10 Or Fever) Qty: 0 0RF morphine concentrate 20 mg/mL syringe 20 mg feeding tube Q6H PRN (Reason: pain) 5 Days Qty: 20 0RF Continued Isosource 1.5 Trever 0.07 gram-1.5 kcal/mL liquid 250 ml feeding tube Q4H apixaban 5 mg tablet 5 mg feeding tube BID atorvastatin 40 mg tablet 40 mg feeding tube QHS azathioprine 50 mg tablet 50 mg feeding tube BID sulfamethoxazole-trimethoprim [Bactrim DS] 800-160 mg tablet 1 tab feeding tube MOWEFR diclofenac sodium [Arthritis Pain (diclofenac)] 1 % gel topical BID docusate sodium [Docuprene] 100 mg tablet 100 mg PO BID Patient Comments: PEG TUbe Drizalma Sprinkle 60 mg capsule, delayed rel sprinkle 60 mg feeding tube QHS ferrous sulfate 300 mg (60 mg iron)/5 mL liquid 300 mg feeding tube BID insulin lispro [Humalog KwikPen Insulin] 100 unit/mL insulin pen See Protocol subcut Q6H Protocol: 6. Sliding Scale Insulin Custom Condition: mg/dl range Dose/Route: Number of Units Condition: 150-200 Dose/Route: 2 Condition: 201-250 Dose/Route: 4 Condition: 251-300 Dose/Route: 6 Condition: 301-350 Dose/Route: 8 Condition: 351-400 Dose/Route: 10 Condition: 401-450 Dose/Route: 12 Protocol Text: Custom Sliding Scale insulin glargine [Lantus Solostar U-100 Insulin] 100 unit/mL (3 mL) insulin pen 15 unit subcut BID memantine 5 mg tablet 5 mg feeding tube BID pramipexole 0.25 mg tablet 0.25 mg feeding tube DAILY pramipexole 0.5 mg tablet 0.5 mg feeding tube QHS prednisone 20 mg tablet 20 mg feeding tube DAILY Rx Instructions: days 11-21 of therapy pregabalin [Lyrica] 100 mg capsule 100 mg feeding tube TID pyridostigmine bromide 60 mg tablet 60 mg feeding tube QHS pyridostigmine bromide 60 mg tablet 120 mg feeding tube ACHS sennosides-docusate sodium [Stool Softener-Laxative] 8.6-50 mg tablet 2 tab-cap PO DAILY Patient Comments: PEG-TUBE sotalol [Betapace] 80 mg tablet 40 mg feeding tube BID Discontinued escitalopram oxalate 5 mg tablet 15 mg feeding tube DAILY fluticasone propionate [24 Hour Allergy Relief] 50 mcg/actuation spray,suspension 2 spray intranasal BID Rx Instructions: administer into each nostril furosemide 20 mg tablet 20 mg feeding tube DAILY dextromethorphan-guaifenesin 10-100 mg/5 mL syrup 10 ml feeding tube Q6H Referrals / Follow Up: Monica Albarado MD [Primary Care Provider] - Disposition Disposition (needs filled in before D/C Order can be placed): [facility] Facility Charges/Coding Visit Charges Inpatient E&M: 13353 Disch Hosp >30min
--- NOTE | 2024-05-06 14:15 | CASEMGMT ---
Advanced Directives HC POA and Living Will rec'd. Copy placed in chart and one sent in folder to [facility]. Danielle Bahena DC Planning Asst.
--- NOTE | 2024-05-06 14:26 | CASEMGMT ---
Discharge Planning Discharge orders, signed med list, transport time, advanced directives and DNR form sent to [facility]. Physicians will transport patient by cot at 3p. Nursing, SW, and pts HC POA (Mike) updated. Danielle Bahena DC Planning Asst.
--- NOTE | 2024-05-06 16:11 | NURSING ---
Report called to Cade Rojas.
== END 2024-05-06 15:56 | disposition skilled nursing facility (03) | DRG 281 ==
LOC: ED 05-01 01:40 → PCU 05-01 05:49
PROVIDERS: Internal Medicine; Student in an Organized Health Care Education/Training Program; Admitting Provider Family Medicine; Emergency Provider Emergency Medicine; PCP Internal Medicine; Visit Provider Internal Medicine
DX: I21.3 ST elevation (STEMI) myocardial infarction of unspecified site (principal); J96.11 Chronic respiratory failure with hypoxia; Z93.0 Tracheostomy status; E11.9 Type 2 diabetes mellitus without complications; D50.9 Iron deficiency anemia, unspecified; B95.7 Other staphylococcus as the cause of diseases classified elsewhere; Z66 Do not resuscitate; I48.0 Paroxysmal atrial fibrillation; G70.00 Myasthenia gravis without (acute) exacerbation; F03.90 Unspecified dementia, unspecified severity, without behavioral disturbance, psychotic disturbance, mood disturbance, and anxiety; I10 Essential (primary) hypertension; F32.A Depression, unspecified; E78.5 Hyperlipidemia, unspecified; Z79.4 Long term (current) use of insulin; F41.9 Anxiety disorder, unspecified; R82.71 Bacteriuria; Z79.01 Long term (current) use of anticoagulants; Z79.899 Other long term (current) drug therapy; Z86.73 Personal history of transient ischemic attack (TIA), and cerebral infarction without residual deficits
CPT/HCPCS: 31720; 36415; 36600; 71045; 80048; 80076; 81001; 82803; 82962; 83605; 83690; 83735; 84484; 85025; 85610; 85730; 87040; 87077; 87086; 87149; 87186; 93005; 93306; 94762; 97161; 97166; 97802; 97803; 99285; Q9957; A4216; C8929; J2405

== ENCOUNTER 2024-05-06 23:48 | Emergency (ER) | payer MEDICARE, MEDICAID, SELFPAY ==
[2024-05-06 23:51] VITALS: BP 135/89; PULSE 65; RESP 18; TEMP 37; O2SAT 97; BMI 23.6
[2024-05-06 23:56] VITALS: BP 135/89; PULSE 73; RESP 18; TEMP 37; O2SAT 98
--- NOTE | 2024-05-07 00:08 | CT_ITS ---
INDICATION: head injury EXAMINATION: CT BRAIN - CT Head or Brain W/O Contrast Injection TECHNIQUE: Serial CT axial images were obtained of the head without intravenous contrast. A radiation dose optimization technique was used for this scan. COMPARISON: None. Findings: Serial CT axial images of the head without contrast. BRAIN PARENCHYMA: Diffuse periventricular hypoattenuation likely chronic white matter ischemic changes. diffuse volume loss. No evidence of intraparenchymal hemorrhage or hyperattenuating extra-axial fluid collection. VASCULAR STRUCTURES: Atherosclerotic vascular calcifications. BONES: Paranasal sinuses are clear. SCALP/REMAINING SOFT TISSUES: Unremarkable. ASPECTS Score for Acute Strokes, if applicable: 10 CT/Brain/Head without Contrast IMPRESSION: Age-related changes as above, without evidence of acute intracranial hemorrhage in this noncontrast head CT. Electronically Signed: Tera Chacko MD at 1:37 EST ,
--- NOTE | 2024-05-07 00:08 | CT_ITS ---
INDICATION: fall EXAMINATION: CT SPINE - CT Spine Cervical W/O Contrast Injection COMPARISON: None. A radiation dose optimization technique was used for this scan. RADIATION DOSAGE (If Supplied By Facility): CTDIvol/DLP = ( 23.63 ) / ( 446.91 ) mGy/mGycm Findings: Serial CT axial images through the cervical spine, with coronal and sagittal reformatted series. BONES: No evidence of acute cervical spine fracture or subluxation. Chronic appearing marked irregular bony sclerosis of C5 and C6 vertebral bodies with disc destruction, anterior fragmentation, and vertebral body height loss. Focal reversal of expected cervical lordosis at this level associated moderate to severe bilateral neuroforaminal narrowing at this level. There is also at least moderate central bony spinal canal stenosis at the C3-C4 level secondary to posterior disc osteophyte formation. SOFT TISSUES: Tracheostomy tube tip is in place within the central upper trachea. CT/Spine Cervical without Contras IMPRESSION: Chronic appearing marked irregular bony sclerosis of C5 and C6 vertebral bodies with intervertebral disc destruction, anterior fragmentation, and vertebral body height loss. Focal reversal of expected cervical lordosis at this level associated moderate to severe bilateral neuroforaminal narrowing at this level. Recommend comparison with previous to document stability of this finding. At least moderate central bony spinal canal stenosis at the C3-C4 level secondary to posterior disc osteophyte formation. Cervical spine without obvious acute fracture. Electronically Signed: Tera Chacko MD at 1:48 EST ,
[2024-05-07 00:56] VITALS: BP 139/79; PULSE 68; RESP 18; TEMP 37; O2SAT 96
[2024-05-07 01:00] VITALS: BP 139/79; PULSE 68; RESP 18; TEMP 37; O2SAT 96
--- NOTE | 2024-05-07 01:00 | RAD_ITS ---
INDICATION: fall EXAMINATION/TECHNIQUE: X-RAY - XR Pelvis 1 or 2 Views COMPARISON: None. FINDINGS: Single frontal view of the pelvis. Left iliac wing is partially obscured by apparent baclofen pump. BONES: Normal anatomic alignment without evidence of fracture or subluxation. No concerning bony lesion or abnormal sclerosis to suggest lesion. JOINTS: No significant degenerative change. SOFT TISSUES: Unremarkable. RAD/Pelvis 1 or 2 Views IMPRESSION: No obvious acute osseous abnormality of the pelvis. Electronically Signed: Tera Chacko MD at 1:38 EST ,
[2024-05-07] MEDS: Ondansetron ODT 4 MG Tablet PO (01:36)
[2024-05-07 02:00] VITALS: BP 135/79; PULSE 78; RESP 23; TEMP 37; O2SAT 92
--- NOTE | 2024-05-07 02:18 | EX.ED.DYSGE1 ---
HPI History of Present Illness Chief Complaint: Fall Informant: patient and EMS Narrative Narrative: Patient is a 68-year-old male with past medical history of hypertension hyperlipidemia paroxysmal atrial fibrillation currently on Eliquis as well as insulin-dependent diabetes. He states that he tripped and fell this evening striking his head. He denies any loss of consciousness. However because of the fall and history of blood thinner use there is concern for underlying trauma and he was sent to the hospital for evaluation [facility] Medical History (Updated 05/16/24 @ 08:[address] Jae Ysuuf, DO) Gastrostomy in place Tracheostomy in place TIA (transient ischemic attack) Hypertension Myasthenia gravis with exacerbation Chronic respiratory failure Congestive cardiac failure Atrial flutter Bradycardia Iron deficiency anemia Chronic pain Diabetes 1.5, managed as type 2 Dysphagia GERD (gastroesophageal reflux disease) Hyperlipemia Afib Dyskinesia of esophagus Depression Anxiety Home Medications ?Medication ?Instructions ?Recorded ?Last Taken ?Type apixaban 5 mg tablet 5 mg feeding tube BID blood thinner 04/30/24 Unknown History atorvastatin 40 mg tablet 40 mg feeding tube QHS cholesterol 04/30/24 Unknown History azathioprine 50 mg tablet 50 mg feeding tube BID 04/30/24 Unknown History lactose-reduced food-fiber 0.07 250 ml feeding tube Q4H 04/30/24 Unknown History gram-1.5 kcal/mL liquid for tube feed (Isosource 1.5 Trever) diclofenac sodium 1 % topical gel topical BID 05/01/24 Unknown History (Arthritis Pain (diclofenac)) docusate sodium 100 mg tablet 100 mg PO BID stool softener 05/01/24 Unknown History (Docuprene) duloxetine 60 mg capsule,delayed 60 mg feeding tube QHS 05/01/24 Unknown History release sprinkle (Drizalma anxiety/depression Sprinkle) ferrous sulfate 300 mg (60 mg 300 mg feeding tube BID supplement 05/01/24 Unknown History iron)/5 mL oral liquid insulin glargine 100 unit/mL (3 15 unit subcut BID DM 05/01/24 Unknown History mL) subcutaneous pen (Lantus Solostar U-100 Insulin) insulin lispro 100 unit/mL See Protocol subcut Q6H DM 05/01/24 Unknown History subcutaneous pen (Humalog KwikPen (U-100) Insulin) memantine 5 mg tablet 5 mg feeding tube BID memory 05/01/24 Unknown History pramipexole 0.25 mg tablet 0.25 mg feeding tube DAILY 05/01/24 Unknown History pramipexole 0.5 mg tablet 0.5 mg feeding tube QHS 05/01/24 Unknown History prednisone 20 mg tablet 20 mg feeding tube DAILY steroid 05/01/24 Unknown History pregabalin 100 mg capsule (Lyrica) 100 mg feeding tube TID 05/01/24 Unknown History pyridostigmine bromide 60 mg tablet 60 mg feeding tube QHS 05/01/24 Unknown History pyridostigmine bromide 60 mg tablet 120 mg feeding tube ACHS 05/01/24 Unknown History sennosides 8.6 mg-docusate sodium 2 tab-cap PO DAILY stool softener 05/01/24 Unknown History 50 mg tablet (Stool Softener-Laxative) sotalol 80 mg tablet (Betapace) 40 mg feeding tube BID heart 05/01/24 Unknown History sulfamethoxazole 800 1 tab feeding tube MOWEFR 05/01/24 Unknown History mg-trimethoprim 160 mg tablet (Bactrim DS) acetaminophen 650 mg/20.3 mL oral 650 mg (20.3 mL) G-tube Q4H PRN 05/06/24 Unknown Rx solution PRN Pain 1-10 Or Fever #0 mL losartan 25 mg tablet 25 mg feeding tube DAILY #0 tabs 05/06/24 Unknown Rx metoprolol tartrate 25 mg tablet 25 mg feeding tube BID #0 tabs 05/06/24 Unknown Rx morphine concentrate 20 mg/mL oral 20 mg feeding tube Q6H PRN pain 5 05/06/24 Unknown Rx syringe (FOR ORAL USE ONLY) days #20 mL Allergy/AdvReac Type Severity Reaction Status Date / Time amlodipine Allergy Unknown PT UNABLE Verified 05/06/24 23:51 TO RESPOND-NEEDS F/U amoxicillin Allergy Unknown PT UNABLE Verified 05/06/24 23:51 TO RESPOND-NEEDS F/U atorvastatin Allergy Unknown PT UNABLE Verified 05/06/24 23:51 TO RESPOND-NEEDS F/U cyclobenzaprine Allergy Unknown PT UNABLE Verified 05/06/24 23:51 TO RESPOND-NEEDS F/U diclofenac Allergy Unknown PT UNABLE Verified 05/06/24 23:51 TO RESPOND-NEEDS F/U diltiazem Allergy Unknown PT UNABLE Verified 05/06/24 23:51 TO RESPOND-NEEDS F/U esomeprazole Allergy Unknown PT UNABLE Verified 05/06/24 23:51 TO RESPOND-NEEDS F/U famotidine Allergy Unknown PT UNABLE Verified 05/06/24 23:51 TO RESPOND-NEEDS F/U gabapentin Allergy Unknown PT UNABLE Verified 05/06/24 23:51 TO RESPOND-NEEDS F/U haloperidol Allergy Unknown PT UNABLE Verified 05/06/24 23:51 TO RESPOND-NEEDS F/U immune globulin,alpha (IgA) Allergy Unknown PT UNABLE Verified 05/06/24 23:51 average 46 mcg/mL TO RESPOND-NEEDS F/U ketamine Allergy Unknown PT UNABLE Verified 05/06/24 23:51 TO RESPOND-NEEDS F/U ketorolac Allergy Unknown PT UNABLE Verified 05/06/24 23:51 TO RESPOND-NEEDS F/U lansoprazole Allergy Unknown PT UNABLE Verified 05/06/24 23:51 TO RESPOND-NEEDS F/U morphine Allergy Unknown PT UNABLE Verified 05/06/24 23:51 TO RESPOND-NEEDS F/U nifedipine Allergy Unknown PT UNABLE Verified 05/06/24 23:51 TO RESPOND-NEEDS F/U pantoprazole Allergy Unknown PT UNABLE Verified 05/06/24 23:51 TO RESPOND-NEEDS F/U prochlorperazine Allergy Unknown PT UNABLE Verified 05/06/24 23:51 TO RESPOND-NEEDS F/U promethazine Allergy Unknown PT UNABLE Verified 05/06/24 23:51 TO RESPOND-NEEDS F/U zolpidem Allergy Unknown PT UNABLE Verified 05/06/24 23:51 TO RESPOND-NEEDS F/U Family History unable to obtain Social History Smoking Status: Unknown if ever smoked ROS ROS ED Constitutional Constitutional ED: Denies chills or fever(s) Eyes Eyes: Denies change in vision ENT ENT ED: Denies sore throat Cardiovascular Cardiovascular: Reports other Details: Negative syncope ; Denies chest pain Respiratory/Chest Respiratory/Chest: Reports cough, dyspnea and other Details: Patient reports this is chronic in nature Gastrointestinal Gastrointestinal: Denies abdominal pain, diarrhea, nausea or vomiting Genitourinary Genitourinary ED: Denies dysuria Musculoskeletal Musculoskeletal: Denies neck pain Integumentary Denies rash Neurologic Neurologic: Denies headache(s) Hematologic/Lymphatic Hematologic/Lymphatic: Reports easy bleeding and easy bruising EXAM Physical Exam Const Vital Signs: 05/06/24 23:51 05/06/24 23:56 05/06/24 23:56 Temperature 98.6 F 98.6 F 98.6 F Temperature Source Oral Oral Pulse Rate 65 73 Respiratory Rate 18 18 Respiratory Effort Short of Breath Respiratory Depth Deep Respiratory Pattern Normal Blood Pressure 135/89 H 135/89 H Blood Pressure Mean 104 104 Pulse Ox 97 98 Oxygen Delivery Method Nasal Cannula Trach Collar Nasal Cannula Oxygen Flow Rate (L/min) 6 6 6 05/07/24 00:56 05/07/24 01:00 05/07/24 02:00 Temperature 98.6 F 98.6 F 98.6 F Temperature Source Oral Oral Oral Pulse Rate 68 68 78 Respiratory Rate 18 18 23 H Respiratory Effort Respiratory Depth Respiratory Pattern Blood Pressure 139/79 H 139/79 H 135/79 H Blood Pressure Mean 99 99 97 Pulse Ox 96 96 92 Oxygen Delivery Method Trach Collar Trach Collar Trach Collar Oxygen Flow Rate (L/min) 6 6 Positive well nourished and well developed General Appearance ED: well developed; Negative for pallor HEENT HEENT Narrative: No signs of depressed or basilar skull fracture No septal hematoma Eyes PERRL and EOMs intact bilaterally Eyes Narrative: No hyphema Neck Neck Narrative: No bony deformity or step-off of the cervical spine no midline tenderness to palpation Chest Wall Chest Narrative: No bony deformity or crepitance or subcutaneous emphysema noted Resp normal respiratory effort and clear to auscultation bilaterally Cardio regular rate and regular rhythm GI normal to inspection, nondistended, normoactive bowel sounds, non-tender, non-distended and no masses Auscultation: normoactive bowel sounds Palpation: soft Extremity normal to inspection Extremity Narrative: Pelvis is stable there is no shortening or external rotation of either lower extremity No obvious findings of long bone injury or joint effusion Neuro CN's II-XII intact bilaterally and no sensory deficits noted Sensorium / Orientation: alert Psych mental status grossly normal Skin no rashes or lesions noted General Skin Exam: Negative for jaundice or pallor MDM MDM MDM Narrative Medical decision making narrative: Patient presented to the ER with stable vitals. He reported a mechanical fall and therefore I felt no need for cardiac or syncope workup. With concern for underlying traumatic skull fracture versus traumatic subarachnoid or subdural hemorrhage based on his fall and blood thinner use a CT of the head was obtained. With potential for cervical compression fracture or spinal thesis the scan was continued into the cervical spine. In order to ensure there is no pelvic fracture pubic rami fracture pelvis x-ray was obtained as well. All imaging studies revealed no signs of acute trauma. Therefore at this time as the patient does not have underlying traumatic findings and vitals are stable and there is no need for further workup in the ER or readmission and he is otherwise safe to return to the group home History & Record Review Discussion w/independent historian: Patient Radiography Diagnostic Testing: Clinical Impression(s) from Imaging Studies Brain CT 05/07/24 00:08 IMPRESSION: Age-related changes as above, without evidence of acute intracranial hemorrhage in this noncontrast head CT. Electronically Signed: Tera Chacko MD at 1:37 EST , Cervical Spine CT 05/07/24 00:08 IMPRESSION: Chronic appearing marked irregular bony sclerosis of C5 and C6 vertebral bodies with intervertebral disc destruction, anterior fragmentation, and vertebral body height loss. Focal reversal of expected cervical lordosis at this level associated moderate to severe bilateral neuroforaminal narrowing at this level. Recommend comparison with previous to document stability of this finding. At least moderate central bony spinal canal stenosis at the C3-C4 level secondary to posterior disc osteophyte formation. Cervical spine without obvious acute fracture. Electronically Signed: Tera Chacko MD at 1:48 EST , Pelvis X-Ray 05/07/24 01:00 IMPRESSION: No obvious acute osseous abnormality of the pelvis. Electronically Signed: Tera Chacko MD at 1:38 EST , Pelvis x-ray as interpreted by the emergency medicine physician reveals no acute fracture or dislocation Discharge Plan Triage Chief Complaint: Fall ED Provider: Jae Yusuf Dx/Rx/DC Orders Clinical Impression: Closed head injury, Accidental fall, Current use of fci anticoagulation, Hypertension Instructions: ED Head Injury (Adult) Prescriptions: No Action Isosource 1.5 Trever 0.07 gram-1.5 kcal/mL liquid 250 ml feeding tube Q4H apixaban 5 mg tablet 5 mg feeding tube BID atorvastatin 40 mg tablet 40 mg feeding tube QHS azathioprine 50 mg tablet 50 mg feeding tube BID sulfamethoxazole-trimethoprim [Bactrim DS] 800-160 mg tablet 1 tab feeding tube MOWEFR diclofenac sodium [Arthritis Pain (diclofenac)] 1 % gel topical BID docusate sodium [Docuprene] 100 mg tablet 100 mg PO BID Patient Comments: PEG TUbe Drizalma Sprinkle 60 mg capsule, delayed rel sprinkle 60 mg feeding tube QHS ferrous sulfate 300 mg (60 mg iron)/5 mL liquid 300 mg feeding tube BID insulin lispro [Humalog KwikPen Insulin] 100 unit/mL insulin pen See Protocol subcut Q6H Protocol: 6. Sliding Scale Insulin Custom Condition: mg/dl range Dose/Route: Number of Units Condition: 150-200 Dose/Route: 2 Condition: 201-250 Dose/Route: 4 Condition: 251-300 Dose/Route: 6 Condition: 301-350 Dose/Route: 8 Condition: 351-400 Dose/Route: 10 Condition: 401-450 Dose/Route: 12 Protocol Text: Custom Sliding Scale insulin glargine [Lantus Solostar U-100 Insulin] 100 unit/mL (3 mL) insulin pen 15 unit subcut BID memantine 5 mg tablet 5 mg feeding tube BID pramipexole 0.25 mg tablet 0.25 mg feeding tube DAILY pramipexole 0.5 mg tablet 0.5 mg feeding tube QHS prednisone 20 mg tablet 20 mg feeding tube DAILY Rx Instructions: days 11-21 of therapy pregabalin [Lyrica] 100 mg capsule 100 mg feeding tube TID pyridostigmine bromide 60 mg tablet 60 mg feeding tube QHS pyridostigmine bromide 60 mg tablet 120 mg feeding tube ACHS sennosides-docusate sodium [Stool Softener-Laxative] 8.6-50 mg tablet 2 tab-cap PO DAILY Patient Comments: PEG-TUBE sotalol [Betapace] 80 mg tablet 40 mg feeding tube BID losartan 25 mg Tablet 25 mg feeding tube DAILY Qty: 0 0RF metoprolol tartrate 25 mg Tablet 25 mg feeding tube BID Qty: 0 0RF acetaminophen 650 mg/20.3 mL Solution 650 mg G-tube Q4H PRN PRN (Reason: Pain 1-10 Or Fever) Qty: 0 0RF morphine concentrate 20 mg/mL syringe 20 mg feeding tube Q6H PRN (Reason: pain) 5 Days Qty: 20 0RF Primary Care Provider: Monica Albarado Referrals: Monica Albarado MD [Primary Care Provider] - Activity Restrictions/Additional Instructions: Your workup today showed no signs of head injury or brain bleed or obvious bone fracture. Continue all of your medications as directed by your doctor and return to the ER should you have any further concerns Print Language: Bulgarian Disposition Disposition: Home, Self Care Discharge Date/Time: 05/07/24 04:20
[2024-05-07 02:32] VITALS: BP 124/84; PULSE 87; RESP 18; TEMP 37; O2SAT 92
--- NOTE | 2024-05-07 02:53 | ED.RN ---
Report called to [facility] and spoke with nurse to update plan of care. [facility]
[2024-05-07 03:00] VITALS: BP 124/84; PULSE 85; RESP 20; O2SAT 95
== END 2024-05-07 04:20 | disposition home or self-care (01) ==
PROVIDERS: Emergency Provider Emergency Medicine; PCP Internal Medicine; Visit Provider Emergency Medicine
DX: S09.90XA Unspecified injury of head, initial encounter (principal); I11.0 Hypertensive heart disease with heart failure; I50.9 Heart failure, unspecified; I48.0 Paroxysmal atrial fibrillation; E11.9 Type 2 diabetes mellitus without complications; W19.XXXA Unspecified fall, initial encounter; Z79.01 Long term (current) use of anticoagulants; Z86.73 Personal history of transient ischemic attack (TIA), and cerebral infarction without residual deficits
CPT/HCPCS: 70450; 72125; 72170; 99284